=== PATIENT | female | born 1985 | race Caucasian/White ===

== ENCOUNTER 2016-09-29 00:43 | Inpatient (IN) | payer OTHER ==
[2016-09-29] MEDS ORDERED: PANTOPRAZOLE 40 MG/10 ML VIAL IVP STA (00:50)
--- NOTE | 2016-09-29 00:55 | ED ---
General Adult HPI - General Stated complaint: Drug Overdose Time Seen by Provider: 09/29/16 00:43 Source: RN notes reviewed - History of Present Illness Initial comments: This is a 31-year-old female who was unresponsive at the scene and that is why EMS was called according to EMS she was doing heroin with her boyfriend who was also unresponsive. EMS stated they gave 8 mg of Narcan and the patient became somewhat combative but still was not alert and not responding to them at all. Patient is started vomiting on the way in and there was some blood in the vomit appeared. No other history is available at this time. - Related Data Home Medications Medication Instructions Recorded Confirmed Unable To Assess [Unable to Assess] 09/29/16 09/29/16 Allergies Allergy/AdvReac Type Severity Reaction Status Date / Time Unable to Assess Allergy Verified 09/29/16 01:25 Review of Systems ROS Statement: Those systems with pertinent positive or pertinent negative responses have been documented in the HPI. ROS Other: All systems not noted in ROS Statement are negative. General Exam - General Exam Comments Initial Comments: GENERAL: Patient is well-developed and well-nourished. Patient is unresponsive ENT: Neck is soft and supple. No significant lymphadenopathy is noted. Oropharynx is clear. Moist mucous membranes. Neck has full range of motion without eliciting any pain. EYES: The sclera were anicteric and conjunctiva were pink and moist. Extraocular movements were intact and pupils were equal round and reactive to light. Eyelids were unremarkable. PULMONARY: Patient has Rales throughout bilaterally CARDIOVASCULAR: There is a regular rate and rhythm without any murmurs gallops or rubs. ABDOMEN: Abdomen was not distended SKIN: Skin is clear with no lesions or rashes and otherwise unremarkable. Ejection appear to be in the right antecubital fossa NEUROLOGIC: Patient is unresponsive and moves a little to painful stimuli but that said MUSCULOSKELETAL: Patient's extremities were moving range of motion could not be tested PSYCHIATRIC: Unable to assess Course Vital Signs 09/29/16 09/29/16 09/29/16 01:00 01:21 01:51 Temperature 97.7 F Pulse Rate 98 110 H 86 Respiratory 18 24 18 Rate Blood Pressure 153/72 149/65 98/54 O2 Sat by Pulse 97 99 100 Oximetry 09/29/16 02:36 Temperature Pulse Rate 91 Respiratory 18 Rate Blood Pressure 84/56 O2 Sat by Pulse 97 Oximetry Procedures - Intubation Time Out Performed: Yes Sedative: Versed Paralytic: Succinylcholine Laryngoscope: Peters Size: 3 ET Tube Size: 8 ET Tube Uncuffed: No Tube Secured Location: teeth Tube Placement Confirmation: visualized tube passing through cords, equal breath sounds bilaterally, no breath sounds over epigastrium, confirmation by capnometry Patient Tolerated Procedure: well Intubation Complications: none Medical Decision Making - Medical Decision Making Chest x-ray was normal. EKG showed good placement NG tube showed good placement. CT of the brain showed no acute normalities. I intubated the patient because she was unresponsive even to painful stimuli. Up with the patient a propofol drip so that she would not help fight the vent. Spoke with Dr. Torres admitted the patient. I spoke with Dr. Valencia and he will be managing the patient from a critical care standpoint. - Lab Data Result diagrams: 09/29/16 01:05 09/29/16 01:05 Lab Results 09/29/16 09/29/16 09/29/16 Range/Units 01:05 01:05 01:05 WBC (3.8-10.6) k/uL RBC (3.80-5.40) m/uL Hgb (11.4-16.0) gm/dL Hct (34.0-46.0) % MCV (80.0-100.0) fL MCH (25.0-35.0) pg MCHC (31.0-37.0) g/dL RDW (11.5-15.5) % Plt Count (150-450) k/uL Neutrophils % % Lymphocytes % % Monocytes % % Eosinophils % % Basophils % % Neutrophils # (1.3-7.7) k/uL Lymphocytes # (1.0-4.8) k/uL Monocytes # (0-1.0) k/uL Eosinophils # (0-0.7) k/uL Basophils # (0-0.2) k/uL PT (9.0-12.0) sec INR (<1.1) APTT (22.0-30.0) sec Sample Site ABG pH (7.35-7.45) ABG pCO2 (35-45) mmHg ABG pO2 (83-108) mmHg ABG HCO3 (21-25) mmol/L ABG Total CO2 (19-24) mmol/L ABG O2 Saturation (94-97) % ABG Base Excess mmol/L FiO2 % Sodium 141 (137-145) mmol/L Potassium 4.5 (3.5-5.1) mmol/L Chloride 110 H (98-107) mmol/L Carbon Dioxide 15 L (22-30) mmol/L Anion Gap 16 mmol/L BUN 20 H (7-17) mg/dL Creatinine 0.90 (0.52-1.04) mg/dL Est GFR (MDRD) Af Amer >60 (>60 ml/min/1.73 sqM) Est GFR (MDRD) Non-Af >60 (>60 ml/min/1.73 sqM) Glucose 213 H (74-99) mg/dL Calcium 8.5 (8.4-10.2) mg/dL Total Bilirubin 0.4 (0.2-1.3) mg/dL AST 311 H (14-36) U/L ALT 359 H (9-52) U/L Alkaline Phosphatase 56 (38-126) U/L Total Creatine Kinase 362 H (30-135) U/L CK-MB (CK-2) 2.1 (0.0-2.4) ng/mL CK-MB (CK-2) Rel Index 0.6 Troponin I <0.012 (0.000-0.034) ng/mL Total Protein 6.9 (6.3-8.2) g/dL Albumin 4.0 (3.5-5.0) g/dL Urine HCG, Qual (Not Detectd) Salicylates <1.0 mg/dL Urine Opiates Screen (NotDetected) Ur Oxycodone Screen (NotDetected) Urine Methadone Screen (NotDetected) Ur Propoxyphene Screen (NotDetected) Acetaminophen <10.0 ug/mL Ur Barbiturates Screen (NotDetected) U Tricyclic Antidepress (NotDetected) Ur Phencyclidine Scrn (NotDetected) Ur Amphetamines Screen (NotDetected) U Methamphetamines Scrn (NotDetected) U Benzodiazepines Scrn (NotDetected) Urine Cocaine Screen (NotDetected) U Marijuana (THC) Screen (NotDetected) Serum Alcohol <10 mg/dL Blood Type O Positive Blood Type Recheck No Antibody Screen NEGATIVE Spec Expiration Date 10/02/2016230409/29/16 09/29/16 09/29/16 Range/Units 01:05 01:05 01:19 WBC 14.1 H (3.8-10.6) k/uL RBC 4.29 (3.80-5.40) m/uL Hgb 12.8 (11.4-16.0) gm/dL Hct 39.5 (34.0-46.0) % MCV 92.0 (80.0-100.0) fL MCH 29.9 (25.0-35.0) pg MCHC 32.4 (31.0-37.0) g/dL RDW 12.3 (11.5-15.5) % Plt Count 271 (150-450) k/uL Neutrophils % 69 % Lymphocytes % 24 % Monocytes % 3 % Eosinophils % 2 % Basophils % 0 % Neutrophils # 9.7 H (1.3-7.7) k/uL Lymphocytes # 3.4 (1.0-4.8) k/uL Monocytes # 0.4 (0-1.0) k/uL Eosinophils # 0.3 (0-0.7) k/uL Basophils # 0.1 (0-0.2) k/uL PT 11.2 (9.0-12.0) sec INR 1.1 (<1.1) APTT 22.9 (22.0-30.0) sec Sample Site ABG pH (7.35-7.45) ABG pCO2 (35-45) mmHg ABG pO2 (83-108) mmHg ABG HCO3 (21-25) mmol/L ABG Total CO2 (19-24) mmol/L ABG O2 Saturation (94-97) % ABG Base Excess mmol/L FiO2 % Sodium (137-145) mmol/L Potassium (3.5-5.1) mmol/L Chloride (98-107) mmol/L Carbon Dioxide (22-30) mmol/L Anion Gap mmol/L BUN (7-17) mg/dL Creatinine (0.52-1.04) mg/dL Est GFR (MDRD) Af Amer (>60 ml/min/1.73 sqM) Est GFR (MDRD) Non-Af (>60 ml/min/1.73 sqM) Glucose (74-99) mg/dL Calcium (8.4-10.2) mg/dL Total Bilirubin (0.2-1.3) mg/dL AST (14-36) U/L ALT (9-52) U/L Alkaline Phosphatase (38-126) U/L Total Creatine Kinase (30-135) U/L CK-MB (CK-2) (0.0-2.4) ng/mL CK-MB (CK-2) Rel Index Troponin I (0.000-0.034) ng/mL Total Protein (6.3-8.2) g/dL Albumin (3.5-5.0) g/dL Urine HCG, Qual (Not Detectd) Salicylates mg/dL Urine Opiates Screen Not Detected (NotDetected) Ur Oxycodone Screen Not Detected (NotDetected) Urine Methadone Screen Not Detected (NotDetected) Ur Propoxyphene Screen Not Detected (NotDetected) Acetaminophen ug/mL Ur Barbiturates Screen Not Detected (NotDetected) U Tricyclic Antidepress Not Detected (NotDetected) Ur Phencyclidine Scrn Not Detected (NotDetected) Ur Amphetamines Screen Not Detected (NotDetected) U Methamphetamines Scrn Not Detected (NotDetected) U Benzodiazepines Scrn Not Detected (NotDetected) Urine Cocaine Screen Not Detected (NotDetected) U Marijuana (THC) Screen Not Detected (NotDetected) Serum Alcohol mg/dL Blood Type Blood Type Recheck Antibody Screen Spec Expiration Date 09/29/16 09/29/16 Range/Units 01:19 01:37 WBC (3.8-10.6) k/uL RBC (3.80-5.40) m/uL Hgb (11.4-16.0) gm/dL Hct (34.0-46.0) % MCV (80.0-100.0) fL MCH (25.0-35.0) pg MCHC (31.0-37.0) g/dL RDW (11.5-15.5) % Plt Count (150-450) k/uL Neutrophils % % Lymphocytes % % Monocytes % % Eosinophils % % Basophils % % Neutrophils # (1.3-7.7) k/uL Lymphocytes # (1.0-4.8) k/uL Monocytes # (0-1.0) k/uL Eosinophils # (0-0.7) k/uL Basophils # (0-0.2) k/uL PT (9.0-12.0) sec INR (<1.1) APTT (22.0-30.0) sec Sample Site LEFT BRACHIAL ABG pH 7.27 L (7.35-7.45) ABG pCO2 40 (35-45) mmHg ABG pO2 396 H (83-108) mmHg ABG HCO3 17 L (21-25) mmol/L ABG Total CO2 19 (19-24) mmol/L ABG O2 Saturation 100.0 H (94-97) % ABG Base Excess -8.3 mmol/L FiO2 100 % Sodium (137-145) mmol/L Potassium (3.5-5.1) mmol/L Chloride (98-107) mmol/L Carbon Dioxide (22-30) mmol/L Anion Gap mmol/L BUN (7-17) mg/dL Creatinine (0.52-1.04) mg/dL Est GFR (MDRD) Af Amer (>60 ml/min/1.73 sqM) Est GFR (MDRD) Non-Af (>60 ml/min/1.73 sqM) Glucose (74-99) mg/dL Calcium (8.4-10.2) mg/dL Total Bilirubin (0.2-1.3) mg/dL AST (14-36) U/L ALT (9-52) U/L Alkaline Phosphatase (38-126) U/L Total Creatine Kinase (30-135) U/L CK-MB (CK-2) (0.0-2.4) ng/mL CK-MB (CK-2) Rel Index Troponin I (0.000-0.034) ng/mL Total Protein (6.3-8.2) g/dL Albumin (3.5-5.0) g/dL Urine HCG, Qual Not Detected (Not Detectd) Salicylates mg/dL Urine Opiates Screen (NotDetected) Ur Oxycodone Screen (NotDetected) Urine Methadone Screen (NotDetected) Ur Propoxyphene Screen (NotDetected) Acetaminophen ug/mL Ur Barbiturates Screen (NotDetected) U Tricyclic Antidepress (NotDetected) Ur Phencyclidine Scrn (NotDetected) Ur Amphetamines Screen (NotDetected) U Methamphetamines Scrn (NotDetected) U Benzodiazepines Scrn (NotDetected) Urine Cocaine Screen (NotDetected) U Marijuana (THC) Screen (NotDetected) Serum Alcohol mg/dL Blood Type Blood Type Recheck Antibody Screen Spec Expiration Date Critical Care Time Critical Care Time: Yes Total Critical Care Time: 35 Disposition Clinical Impression: Heroin overdose Disposition: ADMITTED IP TO THIS [facility] Time of Disposition: 03:15
[2016-09-29] MEDS ORDERED: ONDANSETRON 4 MG/2 ML VIAL IVP STA (00:56)
--- NOTE | 2016-09-29 01:09 | XR ---
EXAMINATION TYPE: XR chest 1V portable DATE OF EXAM: 09/29/2016 12:59 AM COMPARISON: NONE HISTORY: Whole dose vomiting no prior TECHNIQUE: Single frontal view of the chest is obtained. FINDINGS: NG tube is noted in place with its tip in the distal esophagus and it has to be advanced at least by 15 cm into the stomach. There is no focal air space opacity, pleural effusion, or pneumothorax seen. The cardiac silhouette size is within normal limits. The osseous structures are intact. IMPRESSION: 1. No acute process. 2. NG tube is noted in place with its tip in the distal esophagus and it has to be advanced at least by 15 cm into the stomach. A phone report is given to Dr. Rice at the time of the dictation at 1:06 AM hours 09/29/2016.
[2016-09-29 01:23] LABS: Basophils # (A) 0.1 k/uL (0-0.2); Basophils % (A) 0 %; CHCM 32.8; Eosinophils # (A) 0.3 k/uL (0-0.7); Eosinophils % (A) 2 %; HCT 39.5 % (34.0-46.0); HDW 2.45; HGB 12.8 gm/dL (11.4-16.0); Luc % (Auto) 1; Lymphocytes # (A) 3.4 k/uL (1.0-4.8); Lymphocytes % (A) 24 %; MCH 29.9 pg (25.0-35.0); MCHC 32.4 g/dL (31.0-37.0); Mean Platelet Volume 8.9; Monocytes # (A) 0.4 k/uL (0-1.0); Monocytes % (A) 3 %; Neutrophils # (A) 9.7 k/uL (1.3-7.7); Neutrophils % (A) 69 %; RBC 4.29 m/uL (3.80-5.40); RDW 12.3 % (11.5-15.5); WBC 14.1 k/uL (3.8-10.6); WBC (Perox) 13.78
[2016-09-29] MEDS ORDERED: PROPOFOL 500 MG in EMPTY BAG 1 BAG IV ONE (01:30)
[2016-09-29] MEDS ORDERED: MIDAZOLAM (PF) 1 MG/ML 5 ML VIAL IV STA (01:31)
[2016-09-29] MEDS ORDERED: SUCCINYLCHOLINE CHLORIDE VIAL 200 MG/10 ML VIAL IV STA (01:32)
[2016-09-29 01:33] LABS: INR 1.1 (<1.1); Partial Thromboplastin Time 22.9 sec (22.0-30.0); Prothrombin Time 11.2 sec (9.0-12.0)
[2016-09-29 01:36] LABS: ALT 359 U/L (9-52); AST 311 U/L (14-36); Acetaminophen <10.0 ug/mL; Alcohol <10 mg/dL; Alkaline Phosphatase 56 U/L (38-126); Anion Gap 16 mmol/L; Blood Urea Nitrogen 20 mg/dL (7-17); Calcium 8.5 mg/dL (8.4-10.2); Carbon Dioxide 15 mmol/L (22-30); Chloride 110 mmol/L (98-107); Glucose 213 mg/dL (74-99); Non-African American GFR(MDRD) >60 (>60 ml/min/1.73 sqM); Potassium 4.5 mmol/L (3.5-5.1); Salicylate <1.0 mg/dL; Sodium 141 mmol/L (137-145); Total Bilirubin 0.4 mg/dL (0.2-1.3); Total Protein 6.9 g/dL (6.3-8.2)
[2016-09-29 01:45] LABS: Creatine Kinase 362 U/L (30-135)
--- NOTE | 2016-09-29 01:47 | XR ---
EXAMINATION TYPE: XR chest 1V portable DATE OF EXAM: 09/29/2016 1:14 AM COMPARISON: 09/29/2016, 12:56 AM hours HISTORY: Tube adjustment., Pain TECHNIQUE: Single frontal view of the chest is obtained. Portable supine study 09/29/2016, 1:11 AM hour s FINDINGS: There is ET tube noted in place with its tip approximately 2 cm above the hugo. NG tube is noted in place with its tip coursing towards the stomach. There is no focal air space opacity, pleural effusion, or pneumothorax seen. The cardiac silhouette size is within normal limits. The osseous structures are intact. IMPRESSION: 1. No acute process. 2. ET tube and NG tube are noted.
[2016-09-29 01:53] LABS: ABG Base Excess -8.3 mmol/L; ABG HCO3 17 mmol/L (21-25); ABG PCO2 40 mmHg (35-45); ABG PH 7.27 (7.35-7.45); ABG PO2 396 mmHg (83-108); ABG TCO2 19 mmol/L (19-24)
[2016-09-29 01:58] LABS: Creatine Kinase MB 2.1 ng/mL (0.0-2.4); Troponin I <0.012 ng/mL (0.000-0.034)
--- NOTE | 2016-09-29 02:31 | CT ---
EXAMINATION TYPE: CT brain wo con DATE OF EXAM: 09/29/2016 2:13 AM COMPARISON: NONE HISTORY: ETOH, unresponsive CT DLP: 1036 mGycm Automated exposure control for dose reduction was used. FINDINGS: There is no acute intracranial hemorrhage, mass effect, or midline shift identified. The ventricles and sulci are within normal limits in size. The globes are intact. Mild mucosal thickening is noted in the ethmoid sinuses. Air-fluid level is noted in the sphenoid sin us with acute sinusitis changes. IMPRESSION: No acute intracranial hemorrhage, mass effect, or midline shift is seen. Acute sphenoid sinusitis.
[2016-09-29] MEDS ORDERED: ZIPRASIDONE 20 MG VIAL IM STA (03:09)
[2016-09-29] MEDS ORDERED: LORazepam 2 MG/ML SYRINGE IM STA (03:09)
[2016-09-29] MEDS ORDERED: NALOXONE 0.4 MG/ML 1 ML VIAL IV PRN (03:15)
[2016-09-29 03:56] LABS: Glucose,Whole Blood 109 mg/dL (75-99)
[2016-09-29 05:55] LABS: Basophils # (A) 0.1 k/uL (0-0.2); Basophils % (A) 0 %; CHCM 32.7; Eosinophils % (A) 0 %; HCT 39.3 % (34.0-46.0); HDW 2.49; HGB 12.6 gm/dL (11.4-16.0); Luc # (Auto) 0.12; Luc % (Auto) 1; Lymphocytes # (A) 1.1 k/uL (1.0-4.8); Lymphocytes % (A) 5 %; MCH 29.6 pg (25.0-35.0); MCHC 32.1 g/dL (31.0-37.0); MCV 92.2 fL (80.0-100.0); Mean Platelet Volume 8.8; Monocytes # (A) 0.9 k/uL (0-1.0); Monocytes % (A) 4 %; Neutrophils # (A) 21.3 k/uL (1.3-7.7); Neutrophils % (A) 91 %; RBC 4.27 m/uL (3.80-5.40); RDW 12.3 % (11.5-15.5); WBC 23.4 k/uL (3.8-10.6); WBC (Perox) 25.16
[2016-09-29 05:57] LABS: ABG Base Excess -6.8 mmol/L; ABG HCO3 18 mmol/L (21-25); ABG PCO2 35 mmHg (35-45); ABG PH 7.33 (7.35-7.45); ABG PO2 245 mmHg (83-108); ABG TCO2 19 mmol/L (19-24)
[2016-09-29] MEDS: PROPOFOL 500 MG in EMPTY BAG 1 BAG IV SCH ×6 (06:09→22:05)
[2016-09-29 06:15] LABS: ALT 329 U/L (9-52); AST 383 U/L (14-36); Alkaline Phosphatase 54 U/L (38-126); Anion Gap 14 mmol/L; Blood Urea Nitrogen 24 mg/dL (7-17); Calcium 8.6 mg/dL (8.4-10.2); Carbon Dioxide 17 mmol/L (22-30); Chloride 114 mmol/L (98-107); Glucose 102 mg/dL (74-99); Magnesium 1.8 mg/dL (1.6-2.3); Non-African American GFR(MDRD) >60 (>60 ml/min/1.73 sqM); Phosphorous 3.7 mg/dL (2.5-4.5); Potassium 4.3 mmol/L (3.5-5.1); Sodium 145 mmol/L (137-145); Total Bilirubin 0.6 mg/dL (0.2-1.3)
[2016-09-29] MEDS ORDERED: Magnesium Replacement Protocol 1 EACH MISC MISCELLANE PRN (06:33)
[2016-09-29 07:42] LABS: Appearance,Urine Turbid (Clear); Bilirubin,Urine Negative (Negative); Glucose,Urine (UA) Negative (Negative); Ketones,Urine Negative (Negative); Leukocyte Esterase,Urine Negative (Negative); Mucus,Urine Few /hpf; Nitrite,Urine Negative (Negative); PH, Urine 5.5 (5.0-8.0); Particle Count 7897; Protein,Urine Trace (Negative); RBC,Urine 11 /hpf (0-5); Specific Gravity,Urine 1.018 (1.001-1.035); UA Billing (MACRO vs. MICRO) MICRO; Uric Acid Crystals,Urine Many /hpf; Urobilinogen,Urine <2.0 mg/dL (<2.0)
[2016-09-29] MEDS: MAGNESIUM SULFATE-D5W PMX 1 GM in DEXTROSE/WATER 1 100ML.BAG IVPB SCH ×2 (08:04→08:55)
[2016-09-29] MEDS: CHLORHEXIDINE GLUCONATE 15 ML CUP MUCOUS MEM SCH ×2 (08:54→20:23)
[2016-09-29] MEDS: PANTOPRAZOLE 40 MG/10 ML VIAL IV SCH (08:55)
[2016-09-29] MEDS: HEPARIN SODIUM,PORCINE 5,000 UNIT/ML 1 ML VIAL SQ SCH ×2 (08:55→18:16)
[2016-09-29] MEDS ORDERED: LORazepam 2 MG/ML SYRINGE ONE (10:42)
[2016-09-29] MEDS ORDERED: LORazepam 2 MG/ML SYRINGE IV STA (10:47)
[2016-09-29] MEDS: levETIRAcetam IV 1,000 MG in SALINE 1 100ML.BAG IVPB SCH ×2 (11:34→20:23)
[2016-09-29 15:29] LABS: Hepatitis B Surface Ag Index 0.09
--- NOTE | 2016-09-29 15:30 | P.CNPUL ---
History of Present Illness Consult date: 09/29/16 Chief complaint: Acute drug overdose History of present illness: 31-year-old female patient was brought into the emergency department after being found unresponsive suspecting a drug overdose. This patient is a long- term heroin abuser. At one point she was clean for a total of 9 months and she was using some subaxone. Apparently, she is back and doing drugs along with her . Yesterday, she was last seen doing drugs and her mother's in-laws house accompanied by her . The patient and her weren't and bedroom in the same house a different level when the [id number] went to check on them and they patient was found to be completely unresponsive. The himself was under the influence of the drug. The exact downtime is not known and it is estimated to be more than 30 minutes at least. The father-in- law on another brother from the same mother started CPR on the patient. EMS was called to the scene. The patient was given a total of 8 mg of Narcan with some response however they overall response was suboptimal. In the emergency department, the patient was not following any commands no she was responding to deep painful stimuli. At that point the patient was intubated and started on mechanical ventilation. At that she came into the intensive care unit the patient started doing some activity which was essentially twitching and this was perceived to be some agitation by the nursing staff and she was placed on Diprivan overnight. This morning, during my electrical equipment technician rounds, to this patient off Diprivan and immediately it was noted that the patient was having rapid jerks somewhat myoclonic and the twitching was on her face both upper extremities and lower extremities. This was typical of seizure, probably tonic- clonic with some myoclonic features and based on that she was given a total of 100 mg of Diprivan bolus and started back on Diprivan drip and started on IV Keppra 1 g twice a day. EEG was ordered on a stat basis. The patient was on a mechanical ventilator on assist control mode and the chest x-ray from this morning showed no acute abnormalities. CAT scan of the brain that was done in the emergency department was also negative. Note that her urine drug screen was negative and after an extensive search and interrogation of the family will follow the patient has used Flakka , which is a Japanese planned that had been melted and shots into her vein. This is an alpha -PVP drug that can cause agitation, delirium, paranoia, aggression, and has also been linked to , malignant hyperthermia, acute myocardial infarction. Clinically, the patient remains completely unresponsive. In fact she is on Diprivan for now and the jerking activity has subsided. She is hemodynamically stable. She is afebrile. Pupils are quite dilated at 6-7 mm in size. Reflexes are within normal in all 4 extremities laterally. Review of Systems ROS unobtainable: due to endotracheal tube, due to mental status Past Medical History Past Medical History: No Reported History Additional Past Medical History / Comment(s): Long history of IVDA involving heroin and the patient was using Subaxone and Vivitrol History of Any Multi-Drug Resistant Organisms: None Reported Past Surgical History: No Surgical Hx Reported Additional Past Surgical History / Comment(s): per . Past Anesthesia/Blood Transfusion Reactions: No Reported Reaction Past Psychological History: Anxiety Additional Psychological History / Comment(s): per . Smoking Status: Current every day smoker Past Alcohol Use History: None Reported Additional Past Alcohol Use History / Comment(s): per Past Drug Use History: Heroin Additional Drug Use History / Comment(s): found unresponsive by EMS personnel, reported by that they both took heroin prior to response by EMS. Medications and Allergies Home Medications Medication Instructions Recorded Confirmed Type Gabapentin 600 mg PO BID 09/29/16 09/29/16 History Allergies Allergy/AdvReac Type Severity Reaction Status Date / Time amoxicillin Allergy Unknown Verified 09/29/16 06:11 Physical Exam Vitals: Vital Signs Temp Pulse Pulse Resp BP BP Pulse Ox 09/29/16 11:00 120 H 20 100/54 98 09/29/16 10:30 115 H 48 H 99/51 92 L 09/29/16 10:00 87 17 103/49 100 09/29/16 09:30 88 16 117/60 98 09/29/16 09:00 118 H 18 102/52 99 09/29/16 08:30 81 16 118/53 99 09/29/16 08:00 97.6 F 100 19 101/51 93 L 09/29/16 07:30 80 17 101/52 99 09/29/16 07:00 80 16 102/51 100 09/29/16 06:40 94 19 98/54 98 02/02/17 06:00 79 16 102/53 100 09/29/16 05:00 77 17 105/53 100 09/29/16 04:00 97.5 F L 85 17 133/62 100 09/29/16 03:28 89 16 124/62 100 09/29/16 03:25 97.6 F 80 16 103/50 100 Intake and Output 09/29/16 09/29/16 09/29/16 06:59 14:59 22:59 Intake Total 150 429.95 Output Total 115 125 Balance 35 304.95 Intake: IV 150 100 normal saline 150 100 Intake, IV Titration 329.95 Amount Magnesium Sulfate-D5w Pmx 200 1 gm In Dextrose/Water 1 100ml.bag @ 100 mls/hr IVPB Q1H NETTIE Rx#: [id number] Propofol 500 mg In Empty 129.95 Bag 1 bag @ Titrate IV . Q0M NETTIE Rx#:[id number] Output: Urine 115 125 Other: Voiding Method Indwelling Catheter Weight 55.6 kg Patient is calm and comfortable sedated with Diprivan and intubated on mechanical ventilator.Head exam was generally normal. There was no scleral icterus or corneal arcus. Mucous membranes were moist.Neck was supple and without jugular venous distension, thyromegaly, or carotid bruits. Carotids were easily palpable bilaterally. There was no adenopathy. Orogastric and orotracheal tube are both in place.Cardiac exam revealed the PMI to be normally situated and sized. The rhythm was regular and no extrasystoles were noted during several minutes of auscultation. The first and second heart sounds were normal and physiologic splitting of the second heart sound was noted. There were no murmurs, rubs, clicks, or gallops.Lungs were clear to auscultation and percussion, and with normal diaphragmatic excursion. No wheezes or rales were noted. Abdominal exam revealed normal bowel sounds. The abdomen was soft, non- tender, and without masses, organomegaly, or appreciable enlargement of the abdominal aorta.Examination of the extremities revealed easily palpable radial, femoral and pedal pulses. There was no cyanosis, clubbing or edema. Neurologically, the patient is not having any clinical seizures although subclinical seizures can be present. Pupils around 6-7 mm in size. No nystagmus. No facial asymmetry. She does not respond to the painful stimuli. Reflexes are equal and symmetrical 4 extremities. No rigidity. No clonus. Results - Laboratory Findings CBC and BMP: 09/29/16 05:36 09/29/16 05:36 ABG ABG pH 7.33 (7.35-7.45) L 09/29/16 05:40 ABG pCO2 35 mmHg (35-45) 09/29/16 05:40 ABG pO2 245 mmHg (83-108) H 09/29/16 05:40 ABG O2 Saturation 100.0 % (94-97) H 09/29/16 05:40 PT/INR, D-dimer PT 11.2 sec (9.0-12.0) 09/29/16 01:05 INR 1.1 (<1.1) 09/29/16 01:05 Abnormal lab findings: Abnormal Labs 09/29/16 09/29/16 09/29/16 03:53 05:36 05:36 WBC 23.4 H Neutrophils # 21.3 H ABG pH ABG pO2 ABG HCO3 ABG O2 Saturation Chloride 114 H Carbon Dioxide 17 L BUN 24 H Glucose 102 H POC Glucose (mg/dL) 109 H AST 383 H ALT 329 H Urine Appearance Urine Protein Urine Blood Urine RBC Uric Acid Crystals Urine Mucus 09/29/16 09/29/16 05:40 05:40 WBC Neutrophils # ABG pH 7.33 L ABG pO2 245 H ABG HCO3 18 L ABG O2 Saturation 100.0 H Chloride Carbon Dioxide BUN Glucose POC Glucose (mg/dL) AST ALT Urine Appearance Turbid H Urine Protein Trace H Urine Blood Small H Urine RBC 11 H Uric Acid Crystals Many H Urine Mucus Few H - Diagnostic Findings Chest x-ray: image reviewed Assessment and Plan Plan: Assessment 1 acute drug intoxication. The patient has injected herself with Flekka, Japanese plant, and this is known to be a an alpha- PVP, a synthetic stimulant of the cathinon-class, a drug is associated with that his suicides and drug overdoses. 2 hypoxic encephalopathy secondary to drug overdose 3 generalized seizures, likely myoclonic 4 long history of IV drug use, involving heroin 5 leukocytosis 6 non-anion gap metabolic acidosis 7 negative urine drug screen Plan We'll contact poison control regarding further inflammation of his thyroid. We will obtain a no valve psychoactive drug screen to see if there is any other drugs involved in this patient's acute overdose. Keep the patient sedated with Diprivan and this would also have an antiepileptic effect. Continue the Keppra. Obtain neurologic consultation. Obtain an EEG. Continue vent support. DVT and GI prophylaxis. IV fluids. Unfortunately the prognosis poor based on the prolonged downtime and possibility of having significant severe hypoxic encephalopathy. Family was updated. We'll continue to follow.
--- NOTE | 2016-09-29 15:31 | HP ---
DATE OF ADMISSION: The chief complaint is unresponsive. HISTORY OF PRESENT ILLNESS: This is a 31-year-old woman with a past history of anxiety, history of nicotine dependence, polysubstance abuse, not being followed by a primary physician in the outpatient setting. Apparently, using along with her boyfriend according to the family and the patient was found to be unresponsive and family then performed CPR. EMS came and subsequently a pulse was noted but when the patient came to the ER, the patient was mechanically intubated. Patient also got 8 mg of Narcan with some increase in the response. The drug screen is negative at this time. There is no history of any fever, rigor or chills. No history of any headache. Patient apparently had a seizure movements which is a side affect of usage. Patient is currently unresponsive, mechanical ventilated, sedated and in the ICU, unable to give history and most of the history from my discussion with the staff nurse and as well as discussion with the grandmother who is got custody of most of her kids and also review of the chart. PAST MEDICAL HISTORY: History of anxiety. History of substance abuse. MEDICATIONS: Gabapentin 600 mg p.o. b.i.d. Allergies are AMOXICILLIN. Family history, social history and review of systems could not taken because of the patient's change in mental status. History of smoking and apparently IV heroin abuse also and usage. PHYSICAL EXAM: Patient is mechanically ventilated, pulse 115, blood pressure 99/51, respirations 48, temperature is 97.6, pulse ox 93% on 40% FiO2. The motorcycle mechanic settings are noted. HEENT: Conjunctivae normal. NECK: No jugular venous distension. CARDIOVASCULAR SYSTEM: S1, S2, muffled. RESPIRATORY: Breath sounds diminished at the bases, a few scattered rhonchi, no crackles. Abdomen is soft, nontender, no mass palpable. No hepatosplenomegaly. EXTREMITIES: Legs no edema, no swelling. NERVOUS SYSTEM: Higher functions as mentioned earlier. Moves all 4 limbs, no focal motor deficits. LYMPHATICS: No lymph node enlargement in the neck, groin or axillae. SKIN: No ulcers, rash or bleeding. Labs are at this time shows WBC 23.4. ABG is noted. AST, ALT noted. ASSESSMENT: 1. overdosage with cardiorespiratory and cardiorespiratory failure, acute hypoxic respiratory failure on mechanical ventilation. 2. Change in mental status, metabolic encephalopathy secondary to overdose. 3. Increased WBC. 4. Metabolic acidosis. 5. Increased random blood sugar. 6. Increased AST, ALT, possible hepatitis secondary to drug abuse. 7. Increased creatinine kinase. 8. History of anxiety. 9. FULL CODE. RECOMMENDATION AND DISCUSSION: In this 31-year-old woman who presented with multiple complex medical issues, will monitor the patient closely. Continue with the current medications. Continue with symptomatic treatment. Otherwise, at this time, continue the mechanical ventilation. Will monitor fluid closely. Dr. Junior has been consulted and I would also recommend neurology consultation, EEG, DVT prophylaxis. Prothrombin inhibitors. Guarded prognosis because of multiple complex medical issues. Further recommendations to follow. Discussed with the family at length and will also consult Electorate Officer and Case Management also once the patient improves. Otherwise, the prognosis guarded. See orders for further details. . Further recommendations to follow. MTDD
[2016-09-29 15:46] LABS: Hepatitis C Virus IgG Index 0.08
[2016-09-29 15:53] LABS: Hepatitis C Virus IgG Ab Negative (Negative)
--- NOTE | 2016-09-29 17:01 | P.CNNES ---
History of Present Illness Consult date: 09/29/16 Reason for Consult: Patient with heroin overdose and currently intubated on the ventilator. History of Present Illness: This patient is a 31-year-old right-handed white female who was found unresponsive at her home earlier today. EMS had arrived and found her collapsed and unresponsive. She was given Narcan at the scene and became slightly more arousable. She was brought into the emergency room where she required intubation. She was transferred to the intensive care unit for close monitoring. She did undergo a computed tomography scan of the brain which revealed no acute intracranial hemorrhage or mass effect. There was acute sphenoid sinusitis noted. Patient remains intubated on the ventilator and is currently on December the prevent drip. She is unresponsive at this time. There is no family at bedside to provide any further history for this patient. She was able to have a routine EEG performed today in the ICU. This EEG is reviewed and does reveal diffuse slowing consistent with a diffuse encephalopathy. There was no evidence of any active seizure focus on this EEG tracing. Patient does respond to painful stimuli even though she is on a Diprivan drip at this time. She does not open her eyes and does not follow any commands. Neurology is now been consulted for further evaluation and recommendations. Review of Systems ROS unobtainable: due to endotracheal tube Neurological: Reports change in mentation, Reports confusion Past Medical History Past Medical History: No Reported History Additional Past Medical History / Comment(s): Long history of IVDA involving heroin and the patient was using Subaxone and Vivitrol History of Any Multi-Drug Resistant Organisms: None Reported Past Surgical History: No Surgical Hx Reported Additional Past Surgical History / Comment(s): per . Past Anesthesia/Blood Transfusion Reactions: No Reported Reaction Past Psychological History: Anxiety Additional Psychological History / Comment(s): per . Smoking Status: Current every day smoker Past Alcohol Use History: None Reported Additional Past Alcohol Use History / Comment(s): per Past Drug Use History: Heroin Additional Drug Use History / Comment(s): found unresponsive by EMS personnel, reported by that they both took heroin prior to response by EMS. Medications and Allergies Home Medications Medication Instructions Recorded Confirmed Type Gabapentin 600 mg PO BID 09/29/16 09/29/16 History Allergies Allergy/AdvReac Type Severity Reaction Status Date / Time amoxicillin Allergy Unknown Verified 09/29/16 06:11 Physical Examination - Vital Signs Vital Signs: Vital Signs Temp Pulse Pulse Resp BP BP Pulse Ox 09/29/16 11:00 120 H 20 100/54 98 09/29/16 10:30 115 H 48 H 99/51 92 L 09/29/16 10:00 87 17 103/49 100 09/29/16 09:30 88 16 117/60 98 09/29/16 09:00 118 H 18 102/52 99 09/29/16 08:30 81 16 118/53 99 09/29/16 08:00 97.6 F 100 19 101/51 93 L 09/29/16 07:30 80 17 101/52 99 09/29/16 07:00 80 16 102/51 100 09/29/16 06:40 94 19 98/54 98 09/29/16 06:00 79 16 102/53 100 09/29/16 05:00 77 17 105/53 100 09/29/16 04:00 97.5 F L 85 17 133/62 100 09/29/16 03:28 89 16 124/62 100 09/29/16 03:25 97.6 F 80 16 103/50 100 Intake and Output 09/29/16 09/29/16 09/29/16 06:59 14:59 22:59 Intake Total 150 717.45 50 Output Total 115 260 45 Balance 35 457.45 5 Intake: IV 150 287.5 50 normal saline 150 287.5 50 Intake, IV Titration 429.95 Amount Magnesium Sulfate-D5w Pmx 200 1 gm In Dextrose/Water 1 100ml.bag @ 100 mls/hr IVPB Q1H [facility] Rx#: [id number] Propofol 500 mg In Empty 129.95 Bag 1 bag @ Titrate IV . Q0M [facility] Rx#:[id number] levETIRAcetam IV 1,000 mg 100 In Saline 1 100ml.bag @ 400 mls/hr IVPB Q12HR [facility] Rx#:[id number] Output: Urine 115 260 45 Other: Voiding Method Indwelling Catheter Weight 55.6 kg - Constitutional General appearance: average body habitus - EENT EENT: PERRL, mucous membranes moist - Respiratory Respiratory: lungs clear, normal breath sounds - Cardiovascular Cardiovascular: regular rate, normal S1, normal S2 Extremities: no peripheral edema bilaterally - Gastrointestinal Gastrointestinal: normoactive bowel sounds - Integumentary Integumentary: normal - Neurologic Cranial nerve examination: PERRL, VFF, face symmetric, intact gag reflex, intact corneal reflex Speech examination: intact Sensorimotor examination: intact Detailed motor examination: other (Patient withdraws to painful stimuli over all 4 extremities. Muscle tone is preserved in the extremities.) Detailed sensory examination: intact Reflex and gait examination: intact Reflexes: 1+: ankle, bicep, knee, tricep - Musculoskeletal Musculoskeletal: no pain Results - Laboratory Findings CBC and BMP: 09/29/16 05:36 09/29/16 05:36 Abnormal Lab Findings: Abnormal Labs 09/29/16 09/29/16 09/29/16 03:53 05:36 05:36 WBC 23.4 H Neutrophils # 21.3 H ABG pH ABG pO2 ABG HCO3 ABG O2 Saturation Chloride 114 H Carbon Dioxide 17 L BUN 24 H Glucose 102 H POC Glucose (mg/dL) 109 H AST 383 H ALT 329 H Urine Appearance Urine Protein Urine Blood Urine RBC Uric Acid Crystals Urine Mucus 09/29/16 09/29/16 05:40 05:40 WBC Neutrophils # ABG pH 7.33 L ABG pO2 245 H ABG HCO3 18 L ABG O2 Saturation 100.0 H Chloride Carbon Dioxide BUN Glucose POC Glucose (mg/dL) AST ALT Urine Appearance Turbid H Urine Protein Trace H Urine Blood Small H Urine RBC 11 H Uric Acid Crystals Many H Urine Mucus Few H Assessment and Plan (1) Acute metabolic encephalopathy Status: Acute Code(s): G93.41 - METABOLIC ENCEPHALOPATHY (2) Heroin overdose Status: Acute Code(s): T40.1X1A - POISONING BY HEROIN, ACCIDENTAL ( UNINTENTIONAL), INIT ENCNTR Plan: This patient is a 31-year-old female admitted with hair when overdose. She required intubation in the emergency room and was transferred to the intensive care unit. She remains on a Diprivan drip. She underwent a routine EEG the results of which are noted above. EEG is diffusely slow with no evidence of any epileptiform discharges. Patient with probable underlying acute metabolic encephalopathy following drug overdose. Patient does withdraw to painful stimuli. She is currently on a Diprivan drip and we will need to closely monitor her in the intensive care unit. Her overall prognosis at this time remains very guarded. We will continue close neurological follow-up with this patient in the intensive care unit. A computed tomography scan of the brain is reviewed and fails to reveal any acute changes. Her overall prognosis at this time remains very guarded. Time with Patient: Greater than 30
[2016-09-29] MEDS: GABAPENTIN 300 MG CAP PO SCH ×2 (18:16→20:23)
--- NOTE | 2016-09-29 22:28 | EEG ---
DATE OF SERVICE: 09/29/2016 INDICATION FOR EXAMINATION: This patient is a 31-year-old female admitted with heroin overdose. Patient currently intubated on the ventilator and is unresponsive. AGE: 31 years. EEG FINDINGS: A routine 21-channel awake digital EEG recording was accomplished utilizing the 10-20 international system with bipolar and referential montages. The background activity in the most alert resting state consists of a poorly developed, poorly sustained 3-4 Hz activity over the posterior head regions. This posterior rhythm attenuates minimally to eye opening. There is a small amount of low amplitude 18-20 Hz beta activity seen maximally over the anterior head regions. Muscle and movement artifact was observed on a few occasions during the tracing. Hyperventilation was not performed. Photic stimulation at flash frequencies of 2-30 Hz produced a minimal occipital driving response. No epileptiform discharges were seen. IMPRESSION: This EEG gives evidence of a severe widespread diffuse disturbance in cerebral function. The EEG failed to reveal any focal, lateralized or epileptiform abnormalities. If clinically indicated, a follow-up EEG is recommended. Clinical correlation is recommended.
[2016-09-30] MEDS: PROPOFOL 500 MG in EMPTY BAG 1 BAG IV SCH ×5 (00:02→11:03)
[2016-09-30] MEDS: HEPARIN SODIUM,PORCINE 5,000 UNIT/ML 1 ML VIAL SQ SCH ×3 (00:03→15:42)
[2016-09-30] MEDS ORDERED: SODIUM CHLORIDE 0.9% 1,000 ML IV ONE (04:28)
[2016-09-30] MEDS: ACETAMINOPHEN IV (For NPO) 1,000 MG in EMPTY BAG 1 BAG IVPB PRN ×2 (05:15→16:55)
[2016-09-30 05:17] LABS: ABG Base Excess -5.1 mmol/L; ABG HCO3 19 mmol/L (21-25); ABG PCO2 33 mmHg (35-45); ABG PH 7.38 (7.35-7.45); ABG PO2 141 mmHg (83-108); ABG TCO2 20 mmol/L (19-24)
[2016-09-30 05:23] LABS: Basophils % (A) 0 %; CH 29.9; CHCM 32.8; Eosinophils # (A) 0.2 k/uL (0-0.7); Eosinophils % (A) 1 %; HCT 34.9 % (34.0-46.0); HDW 2.46; HGB 11.6 gm/dL (11.4-16.0); Luc # (Auto) 0.16; Luc % (Auto) 1; Lymphocytes # (A) 1.5 k/uL (1.0-4.8); Lymphocytes % (A) 12 %; MCH 30.5 pg (25.0-35.0); MCHC 33.2 g/dL (31.0-37.0); MCV 91.8 fL (80.0-100.0); Mean Platelet Volume 8.6; Monocytes # (A) 0.5 k/uL (0-1.0); Monocytes % (A) 4 %; Neutrophils # (A) 9.8 k/uL (1.3-7.7); Neutrophils % (A) 81 %; RBC 3.81 m/uL (3.80-5.40); RDW 12.4 % (11.5-15.5); WBC 12.1 k/uL (3.8-10.6); WBC (Perox) 13.09
[2016-09-30 05:31] LABS: ALT 188 U/L (9-52); AST 131 U/L (14-36); Alkaline Phosphatase 50 U/L (38-126); Anion Gap 6 mmol/L; Blood Urea Nitrogen 15 mg/dL (7-17); Calcium 8.1 mg/dL (8.4-10.2); Carbon Dioxide 21 mmol/L (22-30); Chloride 111 mmol/L (98-107); Glucose 85 mg/dL (74-99); Magnesium 2.1 mg/dL (1.6-2.3); Non-African American GFR(MDRD) >60 (>60 ml/min/1.73 sqM); Phosphorous 2.4 mg/dL (2.5-4.5); Potassium 4.2 mmol/L (3.5-5.1); Sodium 138 mmol/L (137-145); Total Bilirubin 0.3 mg/dL (0.2-1.3); Total Protein 5.7 g/dL (6.3-8.2)
--- NOTE | 2016-09-30 07:43 | XR ---
EXAMINATION TYPE: XR chest 1V portable DATE OF EXAM: 09/30/2016 6:40 AM CLINICAL HISTORY: Difficulty breathing progress study. TECHNIQUE: 2 AP portable frontal semiupright views of the chest are obtained. COMPARISON: Chest x-ray from one day earlier FINDINGS: An endotracheal tube and nasogastric tube are stable in appearance. Lungs are grossly minna r without pleural effusion or pneumothorax seen bilaterally. The cardiac silhouette size appears with in normal limits. Osseous structures are intact. IMPRESSION: Overall stable findings, no acute pulmonary process is evident.
[2016-09-30] MEDS: levETIRAcetam IV 1,000 MG in SALINE 1 100ML.BAG IVPB SCH (09:47)
[2016-09-30] MEDS: GABAPENTIN 300 MG CAP PO SCH (09:47)
[2016-09-30] MEDS: CHLORHEXIDINE GLUCONATE 15 ML CUP MUCOUS MEM SCH (09:47)
[2016-09-30] MEDS: PANTOPRAZOLE 40 MG/10 ML VIAL IV SCH (09:47)
--- NOTE | 2016-09-30 10:55 | CT ---
EXAMINATION TYPE: CT brain wo con DATE OF EXAM: 09/30/2016 10:50 AM COMPARISON: 09/29/2016 HISTORY: follow up scan CT DLP: 1072.[address] of the brain was performed. The ventricles, basal cisterns and sulci overlying the cerebral convexities demonstrate a normal appe arance. There is no evidence for intracranial hemorrhage or sulcal effacement. No mass effects are seen. Osseous calvarium is intact. Chronic paranasal sinusitis. If symptoms persist consider MRI as clinically warranted. IMPRESSION: 1. No acute intracranial process is seen at this time.
--- NOTE | 2016-09-30 13:54 | P.PN ---
Subjective This patient is a 31 year old female seen in the ICU for heroin drug overdose and currently intubated on the ventilator. She remains obtunded on the ventilator. She had CT Scan brain done that was negative for any evidence of acute changes on admission. Patient had repeat computed tomography scan of the brain today which reveals no acute intracranial process. Patient remains obtunded and is still on the Diprivan drip. Her pupils are sluggishly reactive. She does withdraw to pain overall 4 extremities. She is not showing much change in her overall neurological status from yesterday. As noted repeat computed tomography scan of the brain fails to reveal any acute changes as compared to her initial scan. She has evidence of a severe encephalopathy secondary to drug overdose. We will continue close neurological follow-up with this patient in the ICU. She had an routine EEG done yesterday that was diffusely slow and consistent with a diffuse metabolic encephalopathy secondary to drug overdose. Her overall prognosis at this time remains very guarded. Objective - Vital Signs Vital signs: Vital Signs Temp 100.1 F H 09/30/16 05:00 Pulse 83 09/30/16 09:00 Resp 16 09/30/16 09:00 BP 113/58 09/30/16 09:00 Pulse Ox 100 09/30/16 09:00 Intake & Output 09/29/16 09/30/16 09/30/16 18:59 06:59 18:59 Intake Total 967.45 1767.342 688.13 Output Total 470 560 200 Balance 497.45 1207.342 488.13 Weight 56.5 kg Intake: IV 487.5 550 650 normal saline 487.5 550 650 Intake, IV Titration 479.95 1217.342 38.13 Amount Magnesium Sulfate-D5w Pmx 200 1 gm In Dextrose/Water 1 100ml.bag @ 100 mls/hr IVPB Q1H [facility] Rx#: [id number] Propofol 500 mg In Empty 179.95 117.342 38.13 Bag 1 bag @ Titrate IV . Q0M [facility] Rx#:[id number] Sodium Chloride 0.9% 1, 1000 000 ml @ 999 mls/hr IV . Q1H1M [facility] Rx#:[id number] levETIRAcetam IV 1,000 mg 100 100 In Saline 1 100ml.bag @ 400 mls/hr IVPB Q12HR [facility] Rx#:[id number] Output: Gastric Drainage 100 Urine 470 460 200 Other: Voiding Method Indwelling Catheter Indwelling Catheter - Exam Physical Examination: Patient seen in the ICU currently intubated on the ventilator. PHYSICAL EXAMINATION: Patient is resting comfortably in bed. VITAL SIGNS: Blood pressure is [109/52]. Heart rate is [88]. Respiration is [16] . Temperature is [98.7]. HEENT: Head is atraumatic, neck is supple, there were no carotid bruits. CHEST: Lungs are clear to auscultation and percussion. CARDIAC: S1, S2 normal rate and rhythm. There is no murmur. ABDOMEN: Soft and nontender. Bowel sounds are present. EXTREMITIES: There is no pedal edema. Peripheral pulses are present. Patient's neurological examination is unchanged from yesterday. She remains obtunded on the ventilator and is currently sedated. - Labs CBC & Chem 7: 09/30/16 04:21 09/30/16 04:21 Labs: Abnormal Lab Results - Last 24 Hours (Table) 09/30/16 09/30/16 09/30/16 Range/Units 04:21 04:21 05:00 WBC 12.1 H (3.8-10.6) k/uL Neutrophils # 9.8 H (1.3-7.7) k/uL ABG pCO2 33 L (35-45) mmHg ABG pO2 141 H (83-108) mmHg ABG HCO3 19 L (21-25) mmol/L ABG O2 Saturation 99.0 H (94-97) % Chloride 111 H (98-107) mmol/L Carbon Dioxide 21 L (22-30) mmol/L Calcium 8.1 L (8.4-10.2) mg/dL Phosphorus 2.4 L (2.5-4.5) mg/dL AST 131 H (14-36) U/L ALT 188 H (9-52) U/L Total Protein 5.7 L (6.3-8.2) g/dL Albumin 3.1 L (3.5-5.0) g/dL Microbiology - Last 24 Hours (Table) 09/29/16 03:50 Gram Stain - Preliminary Sputum Sputum Culture - Preliminary Assessment and Plan (1) Acute metabolic encephalopathy Status: Acute Code(s): G93.41 - METABOLIC ENCEPHALOPATHY (2) Heroin overdose Status: Acute Code(s): T40.1X1A - POISONING BY HEROIN, ACCIDENTAL ( UNINTENTIONAL), INIT ENCNTR Plan: This patient is a 31-year-old female admitted with hair when overdose. She required intubation in the emergency room and was transferred to the intensive care unit. She remains on a Diprivan drip. She underwent a routine EEG the results of which are noted above. EEG is diffusely slow with no evidence of any epileptiform discharges. Patient with probable underlying acute metabolic encephalopathy following drug overdose. Patient does withdraw to painful stimuli. She is currently on a Diprivan drip and we will need to closely monitor her in the intensive care unit. Her overall prognosis at this time remains very guarded. We will continue close neurological follow-up with this patient in the intensive care unit. A computed tomography scan of the brain is reviewed and fails to reveal any acute changes. The computed tomography scan was repeated today and continues to show no acute changes. She remains on a Diprivan drip. Apparently she was taken off of all sedation and showed no significant improvement in her neurological status. Patient has evidence of a severe encephalopathy following drug overdose. Her overall condition has shown no significant improvement in her neurological status in the ICU. Her overall prognosis at this time remains very guarded.
--- NOTE | 2016-09-30 16:55 | P.PN ---
Subjective 31-year-old female patient was brought into the emergency department after being found unresponsive suspecting a drug overdose. This patient is a long- term heroin abuser. At one point she was clean for a total of 9 months and she was using some subaxone. Apparently, she is back and doing drugs along with her . Yesterday, she was last seen doing drugs and her mother's in-laws house accompanied by her . The patient and her weren't and bedroom in the same house a different level when the [id number] went to check on them and they patient was found to be completely unresponsive. The himself was under the influence of the drug. The exact downtime is not known and it is estimated to be more than 30 minutes at least. The father-in- law on another brother from the same mother started CPR on the patient. EMS was called to the scene. The patient was given a total of 8 mg of Narcan with some response however they overall response was suboptimal. In the emergency department, the patient was not following any commands no she was responding to deep painful stimuli. At that point the patient was intubated and started on mechanical ventilation. At that she came into the intensive care unit the patient started doing some activity which was essentially twitching and this was perceived to be some agitation by the nursing staff and she was placed on Diprivan overnight. This morning, during my die attaching machine tender rounds, to this patient off Diprivan and immediately it was noted that the patient was having rapid jerks somewhat myoclonic and the twitching was on her face both upper extremities and lower extremities. This was typical of seizure, probably tonic- clonic with some myoclonic features and based on that she was given a total of 100 mg of Diprivan bolus and started back on Diprivan drip and started on IV Keppra 1 g twice a day. EEG was ordered on a stat basis. The patient was on a mechanical ventilator on assist control mode and the chest x-ray from this morning showed no acute abnormalities. CAT scan of the brain that was done in the emergency department was also negative. Note that her urine drug screen was negative and after an extensive search and interrogation of the family will follow the patient has used Flakka , which is a [place] planned that had been melted and shots into her vein. This is an alpha -PVP drug that can cause agitation, delirium, paranoia, aggression, and has also been linked to , malignant hyperthermia, acute myocardial infarction. Clinically, the patient remains completely unresponsive. In fact she is on Diprivan for now and the jerking activity has subsided. She is hemodynamically stable. She is afebrile. Pupils are quite dilated at 6-7 mm in size. Reflexes are within normal in all 4 extremities laterally. On 09/30/2016 the patient is being seen in follow-up. As mentioned yesterday, the patient is a drug overdose case and the patient has signs of severe hypoxic encephalopathy. She was having seizure activity yesterday and based on that I put her on Diprivan and start on Keppra. Follow-up EEG was done and it showed evidence of severe widespread diffuse disturbance in the cerebral function. There was no evidence of any focal lateralizing or epileptiform activities. The patient as such was kept on the Diprivan and Keppra overnight and this morning she was taken off the Diprivan and she was given a holiday. The patient remained completely unresponsive. No junk activity was noted. The patient is unresponsive to any deep painful stimuli. She remains deeply comatose. She is still on IV Keppra for now 1 g every 12 hours. Neurology is on the case and strongly suspecting severe hypoxic/anoxic encephalopathy. Meanwhile, we are considering the rest of the supportive care. The patient remains on a mechanical ventilator. Chest x-ray today is clear. Blood gases were noted. The patient is oxygenating well. The patient will be started on tube feeds today. The patient did have a spike of temperature and she'll be cultured including sputum and blood and urine and she was started on empiric antibiotic coverage with IV Zosyn. Objective - Vital Signs Vital signs: Vital Signs Temp 101.1 F H 09/30/16 16:00 Pulse 94 09/30/16 16:00 Resp 15 09/30/16 16:00 BP 121/52 09/30/16 16:00 Pulse Ox 100 09/30/16 16:00 Intake & Output 09/29/16 09/30/16 09/30/16 18:59 06:59 18:59 Intake Total 967.45 1767.342 616.248 Output Total 470 560 850 Balance 497.45 1207.342 -233.752 Weight 56.5 kg 55.8 kg Intake: IV 487.5 550 500 normal saline 487.5 550 500 Intake, IV Titration 479.95 1217.342 96.248 Amount Magnesium Sulfate-D5w Pmx 200 1 gm In Dextrose/Water 1 100ml.bag @ 100 mls/hr IVPB Q1H [facility] Rx#: [id number] Propofol 500 mg In Empty 179.95 117.342 96.248 Bag 1 bag @ Titrate IV . Q0M [facility] Rx#:[id number] Sodium Chloride 0.9% 1, 1000 000 ml @ 999 mls/hr IV . Q1H1M [facility] Rx#:[id number] levETIRAcetam IV 1,000 mg 100 100 In Saline 1 100ml.bag @ 400 mls/hr IVPB Q12HR [facility] Rx#:[id number] Tube Feeding 20 Output: Gastric Drainage 100 Urine 470 460 850 Other: Voiding Method Indwelling Catheter Indwelling Catheter Indwelling Catheter - Exam Patient is calm and comfortable and intubated on mechanical ventilator.Head exam was generally normal. There was no scleral icterus or corneal arcus. Mucous membranes were moist. Neck was supple and without jugular venous distension, thyromegaly, or carotid bruits. Carotids were easily palpable bilaterally. There was no adenopathy. Orogastric and orotracheal tube are both in place.Cardiac exam revealed the PMI to be normally situated and sized. The rhythm was regular and no extrasystoles were noted during several minutes of auscultation. The first and second heart sounds were normal and physiologic splitting of the second heart sound was noted. There were no murmurs, rubs, clicks, or gallops.Lungs were clear to auscultation and percussion, and with normal diaphragmatic excursion. No wheezes or rales were noted. Abdominal exam revealed normal bowel sounds. The abdomen was soft, non-tender, and without masses, organomegaly, or appreciable enlargement of the abdominal aorta.Examination of the extremities revealed easily palpable radial, femoral and pedal pulses. There was no cyanosis, clubbing or edema. Neurologically, the patient was taken off Diprivan. She is deeply comatose. Not responding to any deep painful stimuli.The pupils are reactive and they're sluggish there around 3 mm in size and there is minimal cough reflex. There is no rigidity no Babinski no clonus. The patient is riding the mechanical ventilator breathing at 16 times per minute. No seizure activity has been noted. - Labs CBC & Chem 7: 09/30/16 04:21 09/30/16 04:21 Labs: Abnormal Lab Results - Last 24 Hours (Table) 09/30/16 09/30/16 09/30/16 Range/Units 04:21 04:21 05:00 WBC 12.1 H (3.8-10.6) k/uL Neutrophils # 9.8 H (1.3-7.7) k/uL ABG pCO2 33 L (35-45) mmHg ABG pO2 141 H (83-108) mmHg ABG HCO3 19 L (21-25) mmol/L ABG O2 Saturation 99.0 H (94-97) % Chloride 111 H (98-107) mmol/L Carbon Dioxide 21 L (22-30) mmol/L Calcium 8.1 L (8.4-10.2) mg/dL Phosphorus 2.4 L (2.5-4.5) mg/dL AST 131 H (14-36) U/L ALT 188 H (9-52) U/L Total Protein 5.7 L (6.3-8.2) g/dL Albumin 3.1 L (3.5-5.0) g/dL Microbiology - Last 24 Hours (Table) 09/29/16 03:50 Gram Stain - Preliminary Sputum Sputum Culture - Preliminary Marian albicans Assessment and Plan Plan: Assessment 1 acute drug intoxication. The patient has injected herself with Flekka, [place] plant, and this is known to be a an alpha- PVP, a synthetic stimulant of the cathinon-class, a drug is associated with that his suicides and drug overdoses. 2 hypoxic encephalopathy secondary to drug overdose. The patient is currently Off sedation and she is deeply comatose. Neurology is on the case and will do agree. Neurologic examinations. EEG showed diffuse slowing without evidence of any seizure activity. The patient remains on Keppra. Repeat CAT scan of the brain showed no acute abnormalities. 3 generalized seizures, likely myoclonic, The EEG performed yesterday while the patient on Diprivan showed no seizure activity and there was diffuse slowing. A follow-up EEG needs to be done later stage. Meanwhile the patient was taken off Diprivan and she is currently on IV Keppra. 4 long history of IV drug use, involving heroin 5 leukocytosis 6 non-anion gap metabolic acidosis 7 negative urine drug screen 8 new-onset fever, rule out infection, rule out neurogenic fever. Plan I will continue monitoring the patient's neurological functions hour to hour basis. Keep the patient off Diprivan for now. Watch for any seizure activity. Repeat EEG. Neurology to follow-up on the case. Unfortunately prognosis poor baseline above-mentioned neurological deficits are seen on this patient. Repeat CAT scan of the brain is negative. Patient is febrile and the patient is having a sepsis workup and we will cover the patient empirically with IV Rocephin. Drop the temperature by Tylenol. We will monitor temperature very closely and not allow any further temperature elevation. 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 The patient will be started on enteral feeding for nutritional support. Prognosis overall is poor. We'll continue to follow. This examination was done and 40 minutes. Time with Patient: Greater than 30
--- NOTE | 2016-09-30 18:54 | PN ---
DATE OF SERVICE: 09/30/2016 This 31-year-old woman was admitted with unresponsiveness and acute cardiorespiratory failure after IV Flakka usage. She is being closely monitored at this time. Patient apparently had seizures. Patient is on Keppra at this time. Neurology is following the patient closely. Her vitals are stable, but patient has tonic movements at this time. The most recent CT scan did not show any acute abnormality at this time. Past medical history reviewed. Review of systems could not be taken. The patient is mechanically ventilated and sedated. Current medications are reviewed and include: 1. Tylenol 1000 mg q.6 p.r.n. 2. Peridex. 3. Neurontin 600 mg b.i.d. 4. Keppra 1 gram b.i.d. 5. Narcan. 6. Protonix. 7. Propofol. PHYSICAL EXAMINATION: Patient is mechanically ventilated and sedated. Pulse is 99, blood pressure 113/56, respiration 23, temperature 98.6, pulse ox 100% on 40% FiO2 mechanical ventilation. The vent settings are noted. HEENT: Conjunctivae normal. Oral mucosa moist. NECK: No jugular venous distention. No carotid bruit. No lymph node enlargement. CARDIOVASCULAR SYSTEM: S1, S2 muffled. No S3. No S4. RESPIRATORY SYSTEM: Breath sounds diminished at the bases. A few scattered rhonchi and crackles. Expiratory wheezing also present. ABDOMEN: Soft, nontender. No mass palpable. LEGS: No edema. No swelling. NERVOUS SYSTEM: Higher functions as mentioned earlier. Moves all 4 limbs. No focal motor or sensory deficit. LYMPHATICS: No lymph node palpable in neck, axillae or groin. SKIN: No ulcer, rash, bleeding. LABS: WBC 12.1. Otherwise, AST and ALT are noted. The hepatitis panel is negative. ASSESSMENT: 1. Overdosage with Flakka with cardiorespiratory arrest and failure with acute hypoxic respiratory failure, on mechanical ventilation. 2. Change in mental status, metabolic encephalopathy, secondary to overdose. 3. Increased white count. 4. Metabolic acidosis. 5. Seizure disorder, underlying. 6. Increased random blood sugar. 7. Increased AST, ALT, possibly hepatitis secondary to drug abuse. 8. Increased creatine kinase. 9. History of anxiety. 10. FULL CODE. RECOMMENDATIONS AND DISCUSSION: In this 31-year-old woman who presented with multiple complex medical issues, we will monitor the patient closely, continue the current medication, continue with symptomatic treatment. Otherwise, continue with mechanical ventilation. Patient is off sedation at this time. Follow closely with Neurology as well as Dr. Junior. Guarded prognosis because of multiple complex medical issues. Further recommendations to follow. I had a detailed discussion with the family yesterday.
[2016-10-01] MEDS: CHLORHEXIDINE GLUCONATE 15 ML CUP MUCOUS MEM SCH ×3 (00:57→21:14)
[2016-10-01] MEDS: GABAPENTIN 300 MG CAP PO SCH ×3 (00:57→21:14)
[2016-10-01] MEDS: HEPARIN SODIUM,PORCINE 5,000 UNIT/ML 1 ML VIAL SQ SCH ×3 (00:58→17:00)
[2016-10-01] MEDS: levETIRAcetam IV 1,000 MG in SALINE 1 100ML.BAG IVPB SCH ×3 (00:58→21:14)
[2016-10-01 01:03] LABS: Glucose,Whole Blood 134 mg/dL (75-99)
[2016-10-01] MEDS: INSULIN LISPRO (humaLOG) 300 UNIT/3 ML VIAL SQ SCH ×4 (01:04→18:21)
[2016-10-01 05:09] LABS: ABG Base Excess -6.4 mmol/L; ABG HCO3 18 mmol/L (21-25); ABG PCO2 31 mmHg (35-45); ABG PH 7.38 (7.35-7.45); ABG PO2 154 mmHg (83-108); ABG TCO2 19 mmol/L (19-24)
[2016-10-01 05:36] LABS: Basophils % (A) 0 %; CHCM 32.1; Eosinophils % (A) 0 %; HCT 35.4 % (34.0-46.0); HDW 2.49; HGB 11.3 gm/dL (11.4-16.0); Luc # (Auto) 0.09; Luc % (Auto) 1; Lymphocytes # (A) 0.5 k/uL (1.0-4.8); Lymphocytes % (A) 3 %; MCH 29.9 pg (25.0-35.0); MCHC 31.8 g/dL (31.0-37.0); MCV 93.9 fL (80.0-100.0); Mean Platelet Volume 8.8; Monocytes # (A) 0.6 k/uL (0-1.0); Monocytes % (A) 4 %; Neutrophils # (A) 14.3 k/uL (1.3-7.7); Neutrophils % (A) 92 %; RBC 3.77 m/uL (3.80-5.40); RDW 12.2 % (11.5-15.5); WBC 15.6 k/uL (3.8-10.6); WBC (Perox) 16.82
[2016-10-01 05:48] LABS: Anion Gap 9 mmol/L; Calcium 8.3 mg/dL (8.4-10.2); Carbon Dioxide 20 mmol/L (22-30); Chloride 111 mmol/L (98-107); Glucose 143 mg/dL (74-99); Non-African American GFR(MDRD) >60 (>60 ml/min/1.73 sqM); Sodium 140 mmol/L (137-145); Total Bilirubin 0.9 mg/dL (0.2-1.3); Total Protein 6.1 g/dL (6.3-8.2)
[2016-10-01 05:49] LABS: Blood Urea Nitrogen 13 mg/dL (7-17); Phosphorous 1.8 mg/dL (2.5-4.5); Potassium 4.2 mmol/L (3.5-5.1)
[2016-10-01 05:50] LABS: ALT 123 U/L (9-52); AST 80 U/L (14-36); Alkaline Phosphatase 54 U/L (38-126); Magnesium 1.8 mg/dL (1.6-2.3)
[2016-10-01 07:15] LABS: ALT 119 U/L (9-52); AST 70 U/L (14-36); Alkaline Phosphatase 57 U/L (38-126); Anion Gap 7 mmol/L; Blood Urea Nitrogen 14 mg/dL (7-17); Calcium 8.5 mg/dL (8.4-10.2); Carbon Dioxide 24 mmol/L (22-30); Chloride 110 mmol/L (98-107); Glucose 148 mg/dL (74-99); Non-African American GFR(MDRD) >60 (>60 ml/min/1.73 sqM); Potassium 3.9 mmol/L (3.5-5.1); Sodium 141 mmol/L (137-145); Total Bilirubin 0.6 mg/dL (0.2-1.3); Total Protein 5.8 g/dL (6.3-8.2)
[2016-10-01 07:17] LABS: Glucose,Whole Blood 143 mg/dL (75-99)
[2016-10-01] MEDS ORDERED: Potassium Replacement Protocol 1 EACH MISC MISCELLANE PRN (07:20)
[2016-10-01] MEDS ORDERED: Phosphorus Replacement Protoco 1 EACH MISC MISCELLANE PRN (07:20)
--- NOTE | 2016-10-01 07:47 | XR ---
EXAMINATION TYPE: XR chest 1V portable DATE OF EXAM: 10/01/2016 6:59 AM COMPARISON: September 30, 2016 HISTORY: SOB, Follow Up FINDINGS: Indwelling tubes and catheters are unchanged. Left lower lobe infiltrate or atelectasis noted. Stable appearance of the cardio-mediastinal structures at this time. Pleural effusion unchanged. IMPRESSION: 1. Left lower lobe infiltrate or atelectasis noted.
[2016-10-01] MEDS ORDERED: POTASSIUM CHLORIDE ORAL LIQUID 40 MEQ/30 ML CUP NG-TUBE ONE (08:00)
[2016-10-01] MEDS: PANTOPRAZOLE 40 MG/10 ML VIAL IV SCH (09:36)
--- NOTE | 2016-10-01 10:44 | P.PN ---
Subjective 31-year-old female patient was brought into the emergency department after being found unresponsive suspecting a drug overdose. This patient is a long- term heroin abuser. At one point she was clean for a total of 9 months and she was using some subaxone. Apparently, she is back and doing drugs along with her . Yesterday, she was last seen doing drugs and her mother's in-laws house accompanied by her . The patient and her weren't and bedroom in the same house a different level when the [id number] went to check on them and they patient was found to be completely unresponsive. The himself was under the influence of the drug. The exact downtime is not known and it is estimated to be more than 30 minutes at least. The father-in- law on another brother from the same mother started CPR on the patient. EMS was called to the scene. The patient was given a total of 8 mg of Narcan with some response however they overall response was suboptimal. In the emergency department, the patient was not following any commands no she was responding to deep painful stimuli. At that point the patient was intubated and started on mechanical ventilation. At that she came into the intensive care unit the patient started doing some activity which was essentially twitching and this was perceived to be some agitation by the nursing staff and she was placed on Diprivan overnight. This morning, during my trench digger rounds, to this patient off Diprivan and immediately it was noted that the patient was having rapid jerks somewhat myoclonic and the twitching was on her face both upper extremities and lower extremities. This was typical of seizure, probably tonic- clonic with some myoclonic features and based on that she was given a total of 100 mg of Diprivan bolus and started back on Diprivan drip and started on IV Keppra 1 g twice a day. EEG was ordered on a stat basis. The patient was on a mechanical ventilator on assist control mode and the chest x-ray from this morning showed no acute abnormalities. CAT scan of the brain that was done in the emergency department was also negative. Note that her urine drug screen was negative and after an extensive search and interrogation of the family will follow the patient has used Flakka , which is a [place] planned that had been melted and shots into her vein. This is an alpha -PVP drug that can cause agitation, delirium, paranoia, aggression, and has also been linked to , malignant hyperthermia, acute myocardial infarction. Clinically, the patient remains completely unresponsive. In fact she is on Diprivan for now and the jerking activity has subsided. She is hemodynamically stable. She is afebrile. Pupils are quite dilated at 6-7 mm in size. Reflexes are within normal in all 4 extremities laterally. On 09/30/2016 the patient is being seen in follow-up. As mentioned yesterday, the patient is a drug overdose case and the patient has signs of severe hypoxic encephalopathy. She was having seizure activity yesterday and based on that I put her on Diprivan and start on Keppra. Follow-up EEG was done and it showed evidence of severe widespread diffuse disturbance in the cerebral function. There was no evidence of any focal lateralizing or epileptiform activities. The patient as such was kept on the Diprivan and Keppra overnight and this morning she was taken off the Diprivan and she was given a holiday. The patient remained completely unresponsive. No junk activity was noted. The patient is unresponsive to any deep painful stimuli. She remains deeply comatose. She is still on IV Keppra for now 1 g every 12 hours. Neurology is on the case and strongly suspecting severe hypoxic/anoxic encephalopathy. Meanwhile, we are considering the rest of the supportive care. The patient remains on a mechanical ventilator. Chest x-ray today is clear. Blood gases were noted. The patient is oxygenating well. The patient will be started on tube feeds today. The patient did have a spike of temperature and she'll be cultured including sputum and blood and urine and she was started on empiric antibiotic coverage with IV Zosyn. On 10/01/2016 the patient is being seen in follow-up. As mentioned, yesterday morning the patient was taken off sedation. The prevent was discontinued. She did not have any seizure activity noted. On the. Neurologic examination the patient was noted to be still unresponsive. This morning, she had some minimal response to deep painful stimuli. She is occasionally breathing above the mechanical ventilator. She has a good cough reflex. Pupils are round 4 mm in size and there reactive to light. There is no nystagmus. No Babinski. No clonus. DTRs are diminished and +1 in upper and lower extremities. No abnormal jerky body movements. The patient remains on Keppra. Fever has been treated and the patient is currently afebrile. IV Rocephin was started as an empiric antibiotic coverage. The patient is on a mechanical ventilator and the vent setting currently is an assist-control of 16, tidal volume 400, FiO2 of 30 % and a PEEP of 5. Chest x-rayDone today is clear and the patient is currently on IV Rocephin as a empiric antibiotic coverage. Objective - Vital Signs Vital signs: Vital Signs Temp 100.3 F H 10/01/16 04:00 Pulse 104 H 10/01/16 10:00 Resp 18 10/01/16 10:00 BP 113/53 10/01/16 10:00 Pulse Ox 97 10/01/16 10:00 Intake & Output 09/30/16 10/01/16 10/01/16 18:59 06:59 18:59 Intake Total 454.218 3903 290 Output Total 1000 460 195 Balance -263.752 730 95 Weight 55.8 kg 54 kg Intake: IV 600 600 200 normal saline 600 600 200 Intake, IV Titration 96.248 100 Amount Propofol 500 mg In Empty 96.248 Bag 1 bag @ Titrate IV . Q0M [facility] Rx#:[id number] levETIRAcetam IV 1,000 mg 100 In Saline 1 100ml.bag @ 400 mls/hr IVPB Q12HR [facility] Rx#:[id number] Tube Feeding 40 400 90 Other 90 Output: Urine 1000 460 195 Other: Voiding Method Indwelling Catheter Indwelling Catheter Indwelling Catheter # Bowel Movements 0 0 - Exam Patient is calm and comfortable and intubated on mechanical ventilator.Head exam was generally normal. There was no scleral icterus or corneal arcus. Mucous membranes were moist. Neck was supple and without jugular venous distension, thyromegaly, or carotid bruits. Carotids were easily palpable bilaterally. There was no adenopathy. Orogastric and orotracheal tube are both in place.Cardiac exam revealed the PMI to be normally situated and sized. The rhythm was regular and no extrasystoles were noted during several minutes of auscultation. The first and second heart sounds were normal and physiologic splitting of the second heart sound was noted. There were no murmurs, rubs, clicks, or gallops.Lungs were clear to auscultation and percussion, and with normal diaphragmatic excursion. No wheezes or rales were noted. Abdominal exam revealed normal bowel sounds. The abdomen was soft, non-tender, and without masses, organomegaly, or appreciable enlargement of the abdominal aorta.Examination of the extremities revealed easily palpable radial, femoral and pedal pulses. There was no cyanosis, clubbing or edema. Neurologically, the patient has minimal sluggish response to deep painful stimuli that was applied to her chest and lower extremities bilaterally. Reflexes are +1, no rigidity, no Babinski, no clonus, no facial asymmetry, she has a good cough and gag reflex and a gag reflex, pupils around 4 mm in size and they are reactive to light, no nystagmus, she is at times breathing above the mechanical ventilator. As such, the patient remains deeply comatose. - Labs CBC & Chem 7: 10/01/16 05:15 10/01/16 06:41 Labs: Abnormal Lab Results - Last 24 Hours (Table) 10/01/16 10/01/16 10/01/16 Range/Units 01:01 05:03 05:15 WBC 15.6 H (3.8-10.6) k/uL RBC 3.77 L (3.80-5.40) m/uL Hgb 11.3 L (11.4-16.0) gm/dL Plt Count 146 L (150-450) k/uL Neutrophils # 14.3 H (1.3-7.7) k/uL Lymphocytes # 0.5 L (1.0-4.8) k/uL ABG pCO2 31 L (35-45) mmHg ABG pO2 154 H (83-108) mmHg ABG HCO3 18 L (21-25) mmol/L ABG O2 Saturation 99.0 H (94-97) % Chloride (98-107) mmol/L Carbon Dioxide (22-30) mmol/L Creatinine (0.52-1.04) mg/dL Glucose (74-99) mg/dL POC Glucose (mg/dL) 134 H (75-99) mg/dL Calcium (8.4-10.2) mg/dL Phosphorus (2.5-4.5) mg/dL AST (14-36) U/L ALT (9-52) U/L Total Protein (6.3-8.2) g/dL Albumin (3.5-5.0) g/dL 10/01/16 10/01/16 10/01/16 Range/Units 05:15 06:41 07:14 WBC (3.8-10.6) k/uL RBC (3.80-5.40) m/uL Hgb (11.4-16.0) gm/dL Plt Count (150-450) k/uL Neutrophils # (1.3-7.7) k/uL Lymphocytes # (1.0-4.8) k/uL ABG pCO2 (35-45) mmHg ABG pO2 (83-108) mmHg ABG HCO3 (21-25) mmol/L ABG O2 Saturation (94-97) % Chloride 111 H 110 H (98-107) mmol/L Carbon Dioxide 20 L (22-30) mmol/L Creatinine 0.48 L 0.49 L (0.52-1.04) mg/dL Glucose 143 H 148 H (74-99) mg/dL POC Glucose (mg/dL) 143 H (75-99) mg/dL Calcium 8.3 L (8.4-10.2) mg/dL Phosphorus 1.8 L (2.5-4.5) mg/dL AST 80 H 70 H (14-36) U/L ALT 123 H 119 H (9-52) U/L Total Protein 6.1 L 5.8 L (6.3-8.2) g/dL Albumin 3.1 L 3.0 L (3.5-5.0) g/dL Microbiology - Last 24 Hours (Table) 09/29/16 03:50 Gram Stain - Final Sputum Sputum Culture - Final Marian albicans 09/30/16 04:51 Blood Culture - Preliminary Blood No Growth after 24 hours 09/30/16 04:36 Blood Culture - Preliminary Blood No Growth after 24 hours Assessment and Plan Plan: Assessment 1 acute drug intoxication. The patient has injected herself with Flekka, Czech plant, and this is known to be a an alpha- PVP, a synthetic stimulant of the cathinon-class, a drug is associated with that his suicides and drug overdoses. 2 hypoxic encephalopathy secondary to drug overdose. The patient is currently Off sedation and she is deeply comatose. Neurology is on the case and will do agree. Neurologic examinations. EEG showed diffuse slowing without evidence of any seizure activity. The patient remains on Keppra. Repeat CAT scan of the brain showed no acute abnormalities. On 10/01/2016, the patient remains deeply comatose. No obvious seizure activity noted. Her latest EEG has shown diffuse slowing and the patient remains on Keppra. The patient has signs of severe hypoxic/anoxic encephalopathy following her acute drug intoxication and cardiopulmonary arrest. A follow-up EEG will be done today. We'll monitor neurological outcome. Intensive care unit. The patient me will be kept intubated and mechanical ventilator. The rest of the supportive care will be also continued. 3 generalized seizures, currently inactive The EEG performed yesterday while the patient on Diprivan showed no seizure activity and there was diffuse slowing. A follow-up EEG needs to be done later stage. Meanwhile the patient was taken off Diprivan and she is currently on IV Keppra. 4 long history of IV drug use, involving heroin 5 leukocytosis 6 non-anion gap metabolic acidosis 7 negative urine drug screen 8 new-onset fever, rule out infection, rule out neurogenic fever. Plan Continue vent support. Repeat EEG. Neurology follow-up. Fever monitoring. Empiric IV Rocephin. Prognosis obviously is poor as the patient is deeply comatose secondary to hypoxic encephalopathy. Will need neurology to prognosticate this patient and the EEG may be useful in terms of setting her prognosis. No major improvement in her neurologic outcome over the past 24 hours. We'll continue to follow. Family has been updated on the condition.. Care evaluation 35 minutes. Time with Patient: Greater than 30
[2016-10-01] MEDS: MAGNESIUM SULFATE-D5W PMX 1 GM in DEXTROSE/WATER 1 100ML.BAG IVPB SCH ×2 (10:55→12:57)
[2016-10-01] MEDS: POTASSIUM PHOSPHATE 10 MMOL in SODIUM CHLORIDE 0.9% 250 ML IV SCH ×2 (10:55→12:57)
[2016-10-01 13:03] LABS: Glucose,Whole Blood 113 mg/dL (75-99)
--- NOTE | 2016-10-01 14:47 | P.PN ---
Subjective This patient is a 31-year-old right-handed white female who was initially found unresponsive at home with a drug overdose. Family provided history stating the patient had used Flakka which is a [place] plant which was apparently injected into her vein. This drug is associated with agitation, delirium, paranoia, and aggression. Patient was brought into the emergency room on initial evaluation and was noted to have seizure-like activity. She was started on Keppra intubated and transferred to the intensive care unit. Initially she was placed on Diprivan for sedation. She has been off of all sedation in Diprivan since 12 noon yesterday. She has not shown much improvement in her neurological status today despite being off of all sedation. She has had no further seizure- like activity noted by the ICU nursing staff. Keppra blood level is pending at this time. The patient remains obtunded. She does withdraw to painful stimuli. She does not open eyes spontaneously. She has had multiple CT scans of the brain the last CAT scan failed to reveal any evidence of acute stroke or hemorrhage. The patient had a follow-up EEG today in the ICU for comparison reasons. Her previous EEG was done on 09/29/2016. Her EEG today was reviewed and continues to reveal evidence of severe slowing with a background of 4 Hz. There is no evidence of any epileptiform discharges. EEG shows no significant improvement from her previous EEG and is consistent with a severe diffuse hypoxic encephalopathy secondary to drug overdose. Patient's family has been updated on her overall neurological status by pulmonary medicine. Her overall prognosis at this time remains very guarded. As noted she has remained off of all sedation since 12 noon yesterday and is not showing any signs of awakening at this time. She does have some pupillary responses and corneal responses intact. She does withdraw to painful stimuli overall 4 extremities. She continues remained comatose however with no significant change or improvement in her neurological status. We will continue to follow this patient closely in the intensive care unit. Overall prognosis at this time remains very guarded. Objective - Vital Signs Vital signs: Vital Signs Temp 100.3 F H 10/01/16 04:00 Pulse 82 10/01/16 13:00 Resp 16 10/01/16 13:00 BP 142/70 10/01/16 13:00 Pulse Ox 100 10/01/16 13:00 Intake & Output 02/11/1110/01/16 10/01/16 18:59 06:59 18:59 Intake Total 982.692 5975 650 Output Total 1000 460 490 Balance -263.752 730 160 Weight 55.8 kg 54 kg Intake: IV 600 600 350 normal saline 600 600 350 Intake, IV Titration 96.248 100 Amount Propofol 500 mg In Empty 96.248 Bag 1 bag @ Titrate IV . Q0M [facility] Rx#:[id number] levETIRAcetam IV 1,000 mg 100 In Saline 1 100ml.bag @ 400 mls/hr IVPB Q12HR [facility] Rx#:[id number] Tube Feeding 40 400 300 Other 90 Output: Urine 1000 460 490 Other: Voiding Method Indwelling Catheter Indwelling Catheter Indwelling Catheter # Bowel Movements 0 0 - Exam Physical examination: PHYSICAL EXAMINATION: Patient remains intubated on the ventilator in the ICU. She has no spontaneous movements. She arouses to sternal rub. VITAL SIGNS: Blood pressure is [142/70]. Heart rate is [82]. Respiration is [16] . Temperature is [98.2]. HEENT: Head is atraumatic, neck is supple, there were no carotid bruits. CHEST: Lungs are clear to auscultation and percussion. CARDIAC: S1, S2 normal rate and rhythm. There is no murmur. ABDOMEN: Soft and nontender. Bowel sounds are present. EXTREMITIES: There is no pedal edema. Peripheral pulses are present. Neurological examination: Patient is intubated on the ventilator in the intensive care unit. She remains off of all sedation for over 24 hours. She arouses minimally to sternal rub. She does withdraw to painful stimuli overall 4 extremities. Deep tendon reflexes are hypoactive 1+. No Babinski response elicited. - Labs CBC & Chem 7: 10/01/16 05:15 10/01/16 06:41 Labs: Abnormal Lab Results - Last 24 Hours (Table) 10/01/16 10/01/16 10/01/16 Range/Units 01:01 05:03 05:15 WBC 15.6 H (3.8-10.6) k/uL RBC 3.77 L (3.80-5.40) m/uL Hgb 11.3 L (11.4-16.0) gm/dL Plt Count 146 L (150-450) k/uL Neutrophils # 14.3 H (1.3-7.7) k/uL Lymphocytes # 0.5 L (1.0-4.8) k/uL ABG pCO2 31 L (35-45) mmHg ABG pO2 154 H (83-108) mmHg ABG HCO3 18 L (21-25) mmol/L ABG O2 Saturation 99.0 H (94-97) % Chloride (98-107) mmol/L Carbon Dioxide (22-30) mmol/L Creatinine (0.52-1.04) mg/dL Glucose (74-99) mg/dL POC Glucose (mg/dL) 134 H (75-99) mg/dL Calcium (8.4-10.2) mg/dL Phosphorus (2.5-4.5) mg/dL AST (14-36) U/L ALT (9-52) U/L Total Protein (6.3-8.2) g/dL Albumin (3.5-5.0) g/dL 10/01/16 10/01/16 10/01/16 Range/Units 05:15 06:41 07:14 WBC (3.8-10.6) k/uL RBC (3.80-5.40) m/uL Hgb (11.4-16.0) gm/dL Plt Count (150-450) k/uL Neutrophils # (1.3-7.7) k/uL Lymphocytes # (1.0-4.8) k/uL ABG pCO2 (35-45) mmHg ABG pO2 (83-108) mmHg ABG HCO3 (21-25) mmol/L ABG O2 Saturation (94-97) % Chloride 111 H 110 H (98-107) mmol/L Carbon Dioxide 20 L (22-30) mmol/L Creatinine 0.48 L 0.49 L (0.52-1.04) mg/dL Glucose 143 H 148 H (74-99) mg/dL POC Glucose (mg/dL) 143 H (75-99) mg/dL Calcium 8.3 L (8.4-10.2) mg/dL Phosphorus 1.8 L (2.5-4.5) mg/dL AST 80 H 70 H (14-36) U/L ALT 123 H 119 H (9-52) U/L Total Protein 6.1 L 5.8 L (6.3-8.2) g/dL Albumin 3.1 L 3.0 L (3.5-5.0) g/dL 10/01/16 Range/Units 13:01 WBC (3.8-10.6) k/uL RBC (3.80-5.40) m/uL Hgb (11.4-16.0) gm/dL Plt Count (150-450) k/uL Neutrophils # (1.3-7.7) k/uL Lymphocytes # (1.0-4.8) k/uL ABG pCO2 (35-45) mmHg ABG pO2 (83-108) mmHg ABG HCO3 (21-25) mmol/L ABG O2 Saturation (94-97) % Chloride (98-107) mmol/L Carbon Dioxide (22-30) mmol/L Creatinine (0.52-1.04) mg/dL Glucose (74-99) mg/dL POC Glucose (mg/dL) 113 H (75-99) mg/dL Calcium (8.4-10.2) mg/dL Phosphorus (2.5-4.5) mg/dL AST (14-36) U/L ALT (9-52) U/L Total Protein (6.3-8.2) g/dL Albumin (3.5-5.0) g/dL Microbiology - Last 24 Hours (Table) 09/29/16 03:50 Gram Stain - Final Sputum Sputum Culture - Final Marian albicans 09/30/16 04:51 Blood Culture - Preliminary Blood No Growth after 24 hours 09/30/16 04:36 Blood Culture - Preliminary Blood No Growth after 24 hours Assessment and Plan (1) Acute metabolic encephalopathy Status: Acute Code(s): G93.41 - METABOLIC ENCEPHALOPATHY (2) Heroin overdose Status: Acute Code(s): T40.1X1A - POISONING BY HEROIN, ACCIDENTAL ( UNINTENTIONAL), INIT ENCNTR Plan: This patient is a 31-year-old right-handed white female who is been followed in the intensive care unit following drug overdose and severe metabolic encephalopathy. She remains intubated on the ventilator with no significant improvement in her overall neurological status. She is remained off of all sedation since 12 noon yesterday with no significant improvement in her mental status. She remains obtunded on the ventilator. She arouses to painful stimuli and sternal rub. She essentially remains comatose at this time. She had a follow-up EEG which failed to reveal any significant improvement in her EEG background activity as compared to previous EEG done on 09/29/2016. Patient continues in the intensive care unit with close monitoring. Her Keppra blood level was drawn today and is pending from the laboratory. We will continue close neurological follow-up with this patient in the ICU. She is not showing much significant improvement in her overall mental status since admission to the ICU. Overall prognosis at this time remains very guarded.
--- NOTE | 2016-10-01 17:23 | PN ---
DATE OF SERVICE: 10/01/2016 This 31-year-old woman who was admitted with unresponsive and acute cardiorespiratory failure was admitted with overdose of with cardiorespiratory failure and arrest, acute hypoxic respiratory failure. The patient is off sedation but still she has minimal responsiveness at this time. The EEG done 2 days ago showed severe widespread diffuse disturbance of cerebral function. Past medical history reviewed. Review of systems could not be taken, the patient mechanically sedated. The current medications are reviewed and include: 1. Rocephin 1 gram IV daily. 2. Neurontin. 3. Keppra 1 gm b.i.d. 4. Supplementation. 5. Narcan. 6. Protonix. 7. Heparin subcu 5000 q.8. PHYSICAL EXAMINATION: Pulse is 82, blood pressure 142/70, respirations 16, temperature normal, pulse ox 100% on 30% mechanical ventilation. HEENT: Conjunctivae normal. Oral mucosa moist. NECK: No jugular venous distention. No thyroid enlargement or carotid bruit. No lymph node enlargement. CARDIOVASCULAR: S1, S2 muffled. No S3, no S4. RESPIRATORY: Breath sounds diminished in the bases. A few scattered rhonchi, no crackles. ABDOMEN: Soft and nontender. No mass palpable. Legs: No edema, no swelling. Nervous system: Higher function as mentioned. Moves all four limbs. No focal deficits. LYMPHATICS: No lymph nodes palpable in the neck, axillae or groin. SKIN: No ulcer, rash or bleeding. LABS: WBC 15.6, Hemoglobin 11.3. Otherwise, AST is 80, and ALT is 123. ASSESSMENT: 1. Over dosage of with cardiorespiratory arrest and acute hypoxic respiratory failure on mechanical ventilation. 2. Change in mental status metabolic alkalosis secondary to overdose. 3. Increased WBC. 4. Metabolic acidosis. 5. Seizure disorder underlying. 6. Increased random blood sugar. 7. Increased AST, ALT, possible hepatitis secondary to drug abuse. 8. Increased creatinine kinase. 9. History of anxiety. 10. Increased WBC. 11. Hypophosphatemia. 12. Anemia. 13. Thrombocytopenia, mild. RECOMMENDATIONS AND DISCUSSION: In this 31-year-old woman who presented with multiple complex medical issues, we will monitor the patient closely. Continue the current medications. Continue symptomatic treatment. Otherwise, at this time I would recommend continue the current medications. Continue symptomatic treatment. Dr. Rm Tucker is planning another EEG. The patient is on Keppra at this time, continue to monitor. The prognosis is guarded because of multiple complex medical issues. Further recommendations to follow. MTDD
[2016-10-01 18:12] LABS: Glucose,Whole Blood 130 mg/dL (75-99)
--- NOTE | 2016-10-01 19:00 | EEG ---
DATE OF SERVICE: 10/01/2016 REFERRING PHYSICIAN: Dr. Junior. CONSULTING INTERPRETING PHYSICIAN: Dr. Sawyer Tucker. INDICATIONS FOR EXAMINATION: AGE: 31Y INDICATIONS FOR EXAMINATION: This patient is a 31-year-old female admitted to the intensive care unit for drug overdose and obtundation. The patient remains comatose and this is a follow-up EEG for comparison. EEG FINDINGS: A routine 21-channel, awake digital EEG recording was accomplished utilizing the 10 to 20 international system with bipolar and referential montages. The background activity in the most alert resting state consists of a poorly developed and poorly sustained 4 Hz activity over the posterior head regions. This posterior rhythm attenuates minimally to eye opening. There is a small amount of low amplitude 18 to 20 Hz beta activity seen maximally over the anterior head regions. Muscle and movement artifact was observed on a few occasions during the tracing. Hyperventilation was not performed. Photic stimulation at flash frequencies of 2 to 30 Hz produced a minimal occipital driving response. Towards the mid and latter portion of the tracing, there is 5 to 6 Hz activity seen intermittently. No epileptiform discharges were seen. IMPRESSION: This EEG continues to give evidence of a severe widespread diffuse disturbance in cerebral function. The EEG failed to reveal any focal, lateralized or epileptiform abnormalities. Compared to a previous EEG performed on 09/29/2016. There is no significant improvement in the EEG background. Clinical correlation is recommended.
[2016-10-01] MEDS ORDERED: IV VANCOMYCIN PER PHARMACY 1 EACH MISC MISCELLANE PRN (21:32)
[2016-10-02] MEDS: VANCOMYCIN 1,000 MG in SODIUM CHLORIDE 0.9% 250 ML IVPB SCH ×4 (00:34→22:32)
[2016-10-02] MEDS: HEPARIN SODIUM,PORCINE 5,000 UNIT/ML 1 ML VIAL SQ SCH ×4 (00:35→23:59)
[2016-10-02] MEDS: INSULIN LISPRO (humaLOG) 300 UNIT/3 ML VIAL SQ SCH ×4 (00:42→18:58)
[2016-10-02 00:43] LABS: Glucose,Whole Blood 135 mg/dL (75-99)
[2016-10-02 04:58] LABS: Basophils % (A) 0 %; CH 30.1; CHCM 32.9; Eosinophils # (A) 0.1 k/uL (0-0.7); Eosinophils % (A) 0 %; HCT 32.5 % (34.0-46.0); HDW 2.49; HGB 10.6 gm/dL (11.4-16.0); Luc # (Auto) 0.18; Luc % (Auto) 1; Lymphocytes # (A) 0.7 k/uL (1.0-4.8); Lymphocytes % (A) 5 %; MCHC 32.7 g/dL (31.0-37.0); MCV 91.8 fL (80.0-100.0); Mean Platelet Volume 8.3; Monocytes # (A) 0.6 k/uL (0-1.0); Monocytes % (A) 5 %; Neutrophils # (A) 11.9 k/uL (1.3-7.7); Neutrophils % (A) 88 %; RBC 3.54 m/uL (3.80-5.40); RDW 12.1 % (11.5-15.5); WBC 13.5 k/uL (3.8-10.6); WBC (Perox) 14.54
[2016-10-02 05:13] LABS: ALT 108 U/L (9-52); AST 68 U/L (14-36); Alkaline Phosphatase 89 U/L (38-126); Anion Gap 12 mmol/L; Blood Urea Nitrogen 12 mg/dL (7-17); Calcium 8.5 mg/dL (8.4-10.2); Carbon Dioxide 19 mmol/L (22-30); Chloride 110 mmol/L (98-107); Glucose 129 mg/dL (74-99); Magnesium 1.9 mg/dL (1.6-2.3); Non-African American GFR(MDRD) >60 (>60 ml/min/1.73 sqM); Phosphorous 1.5 mg/dL (2.5-4.5); Potassium 3.9 mmol/L (3.5-5.1); Sodium 141 mmol/L (137-145); Total Bilirubin 0.5 mg/dL (0.2-1.3)
[2016-10-02] MEDS ORDERED: POTASSIUM CHLORIDE ORAL LIQUID 40 MEQ/30 ML CUP NG-TUBE SCH (06:00)
[2016-10-02 06:35] LABS: Glucose,Whole Blood 120 mg/dL (75-99)
[2016-10-02] MEDS: SODIUM PHOSPHATE 10 MMOL in SODIUM CHLORIDE 0.9% 250 ML IVPB SCH ×2 (06:35→10:28)
[2016-10-02] MEDS: MAGNESIUM SULFATE-D5W PMX 1 GM in DEXTROSE/WATER 1 100ML.BAG IVPB SCH ×2 (06:35→10:29)
--- NOTE | 2016-10-02 07:01 | XR ---
EXAMINATION TYPE: XR chest 1V portable DATE OF EXAM: 10/02/2016 6:47 AM COMPARISON: October 01, 2016 HISTORY: SOB, Follow Up FINDINGS: Indwelling tubes and catheters are unchanged. No change in left basilar atelectasis or infiltrate. Stable appearance of the cardio-mediastinal structures at this time. Pleural effusion unchanged. IMPRESSION: 1. Stable portable chest. Clinical correlation and follow up until resolution is recommended.
[2016-10-02] MEDS: levETIRAcetam IV 1,000 MG in SALINE 1 100ML.BAG IVPB SCH ×2 (09:18→20:39)
[2016-10-02] MEDS: CHLORHEXIDINE GLUCONATE 15 ML CUP MUCOUS MEM SCH ×2 (09:19→20:24)
[2016-10-02] MEDS: GABAPENTIN 300 MG CAP PO SCH ×2 (09:19→20:24)
[2016-10-02] MEDS: PANTOPRAZOLE 40 MG/10 ML VIAL IV SCH (09:19)
--- NOTE | 2016-10-02 11:33 | P.PN ---
Subjective This patient is a 31-year-old right-handed white female who was initially found unresponsive at home with a drug overdose. Family provided history stating the patient had used Flakka which is a [place] plant which was apparently injected into her vein. This drug is associated with agitation, delirium, paranoia, and aggression. Patient was brought into the emergency room on initial evaluation and was noted to have seizure-like activity. She was started on Keppra intubated and transferred to the intensive care unit. Initially she was placed on Diprivan for sedation. She has been off of all sedation in Diprivan since 12 noon yesterday. She has not shown much improvement in her neurological status today despite being off of all sedation. She has had no further seizure- like activity noted by the ICU nursing staff. Keppra blood level is pending at this time. The patient remains obtunded. She does withdraw to painful stimuli. She does not open eyes spontaneously. She has had multiple CT scans of the brain the last CAT scan failed to reveal any evidence of acute stroke or hemorrhage. The patient had a follow-up EEG today in the ICU for comparison reasons. Her previous EEG was done on 09/29/2016. Her EEG today was reviewed and continues to reveal evidence of severe slowing with a background of 4 Hz. There is no evidence of any epileptiform discharges. EEG shows no significant improvement from her previous EEG and is consistent with a severe diffuse hypoxic encephalopathy secondary to drug overdose. Patient's family has been updated on her overall neurological status by pulmonary medicine. Her overall prognosis at this time remains very guarded. As noted she has remained off of all sedation since 12 noon yesterday and is not showing any signs of awakening at this time. She does have some pupillary responses and corneal responses intact. She does withdraw to painful stimuli overall 4 extremities. Neurological exam in the ICU today shows slightly more brisk pupillary response. She still remains somewhat obtunded on the ventilator. As noted her repeat EEG done yesterday failed to reveal any significant improvement in her background activity. No evidence of any seizure activity. Her Keppra blood level is pending this morning and should be available tomorrow for review. We will continue to follow this patient closely in the intensive care unit. Overall prognosis at this time remains very guarded. Objective - Vital Signs Vital signs: Vital Signs Temp 98 F 10/02/16 09:00 Pulse 129 H 02/05/17 09:00 Resp 37 H 10/02/16 09:00 BP 145/80 10/02/16 09:00 Pulse Ox 100 10/02/16 08:00 Intake & Output 10/01/16 10/02/16 10/02/16 18:59 06:59 18:59 Intake Total 1170 2285 285 Output Total 785 795 275 Balance 385 1490 10 Weight 54.1 kg Intake: IV 600 600 150 normal saline 600 600 150 Intake, IV Titration 950 Amount Magnesium Sulfate-D5w Pmx 100 1 gm In Dextrose/Water 1 100ml.bag @ 100 mls/hr IVPB Q1H [facility] Rx#: [id number] Sodium Phosphate 10 mmol 250 In Sodium Chloride 0.9% 250 ml @ 125 mls/hr IVPB Q2H [facility] Rx#:[id number] Vancomycin 1,000 mg In 500 Sodium Chloride 0.9% 250 ml @ 125 mls/hr IVPB Q8H [facility] Rx#:[id number] levETIRAcetam IV 1,000 mg 100 In Saline 1 100ml.bag @ 400 mls/hr IVPB Q12HR [facility] Rx#:[id number] Tube Feeding 570 675 135 Other 60 Output: Urine 785 795 275 Other: Voiding Method Indwelling Catheter Indwelling Catheter Indwelling Catheter # Bowel Movements 0 1 - Exam Physical examination: PHYSICAL EXAMINATION: Patient remains intubated on the ventilator in the ICU. She has no spontaneous movements. She arouses to sternal rub. VITAL SIGNS: Blood pressure is [145/80]. Heart rate is [120]. Respiration is [25 ]. Temperature is [98.0]. HEENT: Head is atraumatic, neck is supple, there were no carotid bruits. CHEST: Lungs are clear to auscultation and percussion. CARDIAC: S1, S2 normal rate and rhythm. There is no murmur. ABDOMEN: Soft and nontender. Bowel sounds are present. EXTREMITIES: There is no pedal edema. Peripheral pulses are present. Neurological examination: Patient is intubated on the ventilator in the intensive care unit. She remains off of all sedation for over 24 hours. She arouses minimally to sternal rub. She does withdraw to painful stimuli overall 4 extremities. Pupils slightly more reactive to light and corneal response today Deep tendon reflexes are hypoactive 1+. No Babinski response elicited. - Labs CBC & Chem 7: 10/02/16 04:25 10/02/16 04:25 Labs: Abnormal Lab Results - Last 24 Hours (Table) 10/01/16 10/01/16 10/02/16 Range/Units 13:01 18:10 00:41 WBC (3.8-10.6) k/uL RBC (3.80-5.40) m/uL Hgb (11.4-16.0) gm/dL Hct (34.0-46.0) % Neutrophils # (1.3-7.7) k/uL Lymphocytes # (1.0-4.8) k/uL Chloride (98-107) mmol/L Carbon Dioxide (22-30) mmol/L Creatinine (0.52-1.04) mg/dL Glucose (74-99) mg/dL POC Glucose (mg/dL) 113 H 130 H 135 H (75-99) mg/dL Phosphorus (2.5-4.5) mg/dL AST (14-36) U/L ALT (9-52) U/L Total Protein (6.3-8.2) g/dL Albumin (3.5-5.0) g/dL 10/02/16 10/02/16 10/02/16 Range/Units 04:25 04:25 06:33 WBC 13.5 H (3.8-10.6) k/uL RBC 3.54 L (3.80-5.40) m/uL Hgb 10.6 L (11.4-16.0) gm/dL Hct 32.5 L (34.0-46.0) % Neutrophils # 11.9 H (1.3-7.7) k/uL Lymphocytes # 0.7 L (1.0-4.8) k/uL Chloride 110 H (98-107) mmol/L Carbon Dioxide 19 L (22-30) mmol/L Creatinine 0.40 L (0.52-1.04) mg/dL Glucose 129 H (74-99) mg/dL POC Glucose (mg/dL) 120 H (75-99) mg/dL Phosphorus 1.5 L (2.5-4.5) mg/dL AST 68 H (14-36) U/L ALT 108 H (9-52) U/L Total Protein 6.0 L (6.3-8.2) g/dL Albumin 3.1 L (3.5-5.0) g/dL Microbiology - Last 24 Hours (Table) 09/30/16 04:36 Blood Culture - Preliminary Blood No Growth after 48 hours 09/30/16 04:51 Blood Culture Gram Stain - Preliminary Blood 09/30/16 04:51 Blood Culture - Preliminary Blood 09/29/16 03:50 Gram Stain - Final Sputum Sputum Culture - Final Marian albicans Assessment and Plan (1) Acute metabolic encephalopathy Status: Acute Code(s): G93.41 - METABOLIC ENCEPHALOPATHY (2) Heroin overdose Status: Acute Code(s): T40.1X1A - POISONING BY HEROIN, ACCIDENTAL ( UNINTENTIONAL), INIT ENCNTR Plan: This patient is a 31-year-old right-handed white female who is been followed in the intensive care unit following drug overdose and severe metabolic encephalopathy. She remains intubated on the ventilator with no significant improvement in her overall neurological status. She is remained off of all sedation since 12 noon yesterday with no significant improvement in her mental status. She remains obtunded on the ventilator. She arouses to painful stimuli and sternal rub. She essentially remains comatose at this time. She had a follow-up EEG which failed to reveal any significant improvement in her EEG background activity as compared to previous EEG done on 09/29/2016. Patient continues in the intensive care unit with close monitoring. Her Keppra blood level was drawn yesterday and is pending from the laboratory. Her pupils are slightly more reactive today. Corneal responses intact bilaterally. Patient continues to demonstrate evidence of a diffuse encephalopathy at this time. We will await further recommendations from tito and his son regarding weaning parameters. She likely will not be able to wean until early next week. We will continue close neurological follow-up with this patient in the ICU. She is not showing much significant improvement in her overall mental status since admission to the ICU. Overall prognosis at this time remains very guarded.
[2016-10-02 12:10] LABS: Glucose,Whole Blood 129 mg/dL (75-99)
--- NOTE | 2016-10-02 13:39 | P.PN ---
Subjective 31-year-old female patient was brought into the emergency department after being found unresponsive suspecting a drug overdose. This patient is a long- term heroin abuser. At one point she was clean for a total of 9 months and she was using some subaxone. Apparently, she is back and doing drugs along with her . Yesterday, she was last seen doing drugs and her mother's in-laws house accompanied by her . The patient and her weren't and bedroom in the same house a different level when the [id number] went to check on them and they patient was found to be completely unresponsive. The himself was under the influence of the drug. The exact downtime is not known and it is estimated to be more than 30 minutes at least. The father-in- law on another brother from the same mother started CPR on the patient. EMS was called to the scene. The patient was given a total of 8 mg of Narcan with some response however they overall response was suboptimal. In the emergency department, the patient was not following any commands no she was responding to deep painful stimuli. At that point the patient was intubated and started on mechanical ventilation. At that she came into the intensive care unit the patient started doing some activity which was essentially twitching and this was perceived to be some agitation by the nursing staff and she was placed on Diprivan overnight. This morning, during my lean sensei rounds, to this patient off Diprivan and immediately it was noted that the patient was having rapid jerks somewhat myoclonic and the twitching was on her face both upper extremities and lower extremities. This was typical of seizure, probably tonic- clonic with some myoclonic features and based on that she was given a total of 100 mg of Diprivan bolus and started back on Diprivan drip and started on IV Keppra 1 g twice a day. EEG was ordered on a stat basis. The patient was on a mechanical ventilator on assist control mode and the chest x-ray from this morning showed no acute abnormalities. CAT scan of the brain that was done in the emergency department was also negative. Note that her urine drug screen was negative and after an extensive search and interrogation of the family will follow the patient has used Flakka , which is a [place] planned that had been melted and shots into her vein. This is an alpha -PVP drug that can cause agitation, delirium, paranoia, aggression, and has also been linked to , malignant hyperthermia, acute myocardial infarction. Clinically, the patient remains completely unresponsive. In fact she is on Diprivan for now and the jerking activity has subsided. She is hemodynamically stable. She is afebrile. Pupils are quite dilated at 6-7 mm in size. Reflexes are within normal in all 4 extremities laterally. On 09/30/2016 the patient is being seen in follow-up. As mentioned yesterday, the patient is a drug overdose case and the patient has signs of severe hypoxic encephalopathy. She was having seizure activity yesterday and based on that I put her on Diprivan and start on Keppra. Follow-up EEG was done and it showed evidence of severe widespread diffuse disturbance in the cerebral function. There was no evidence of any focal lateralizing or epileptiform activities. The patient as such was kept on the Diprivan and Keppra overnight and this morning she was taken off the Diprivan and she was given a holiday. The patient remained completely unresponsive. No junk activity was noted. The patient is unresponsive to any deep painful stimuli. She remains deeply comatose. She is still on IV Keppra for now 1 g every 12 hours. Neurology is on the case and strongly suspecting severe hypoxic/anoxic encephalopathy. Meanwhile, we are considering the rest of the supportive care. The patient remains on a mechanical ventilator. Chest x-ray today is clear. Blood gases were noted. The patient is oxygenating well. The patient will be started on tube feeds today. The patient did have a spike of temperature and she'll be cultured including sputum and blood and urine and she was started on empiric antibiotic coverage with IV Zosyn. On 10/01/2016 the patient is being seen in follow-up. As mentioned, yesterday morning the patient was taken off sedation. The prevent was discontinued. She did not have any seizure activity noted. On the. Neurologic examination the patient was noted to be still unresponsive. This morning, she had some minimal response to deep painful stimuli. She is occasionally breathing above the mechanical ventilator. She has a good cough reflex. Pupils are round 4 mm in size and there reactive to light. There is no nystagmus. No Babinski. No clonus. DTRs are diminished and +1 in upper and lower extremities. No abnormal jerky body movements. The patient remains on Keppra. Fever has been treated and the patient is currently afebrile. IV Rocephin was started as an empiric antibiotic coverage. The patient is on a mechanical ventilator and the vent setting currently is an assist-control of 16, tidal volume 400, FiO2 of 30 % and a PEEP of 5. Chest x-rayDone today is clear and the patient is currently on IV Rocephin as a empiric antibiotic coverage. On 10/02/2016 the patient is being seen in follow-up. The patient is still off any form of sedation. Unfortunately the neurologic recovery has been minimal. The patient remains comatose. She does withdraw to deep painful stimuli. She does not open her eyes spontaneously. She does not reveal any seizure activity. At times she gets tachycardic and this septal spontaneously. She remains on a mechanical ventilator. No fever or chills. No other significant events overnight. EEG had shown diffuse slowing with a background of 4 Hz activity and there is no evidence of any seizure activity noted. Prognosis remains very guarded. The patient is still on Keppra and the antiepileptic medication levels are being managed by neurology. Objective - Vital Signs Vital signs: Vital Signs Temp 97.3 F L 10/02/16 12:00 Pulse 124 H 10/02/16 13:00 Resp 24 10/02/16 13:00 BP 138/73 10/02/16 13:00 Pulse Ox 100 10/02/16 13:00 Intake & Output 10/01/16 10/02/16 10/02/16 18:59 06:59 18:59 Intake Total 1170 2285 620 Output Total 785 795 650 Balance 385 1490 -30 Weight 54.1 kg Intake: IV 600 600 350 normal saline 600 600 350 Intake, IV Titration 950 Amount Magnesium Sulfate-D5w Pmx 100 1 gm In Dextrose/Water 1 100ml.bag @ 100 mls/hr IVPB Q1H [facility] Rx#: [id number] Sodium Phosphate 10 mmol 250 In Sodium Chloride 0.9% 250 ml @ 125 mls/hr IVPB Q2H [facility] Rx#:[id number] Vancomycin 1,000 mg In 500 Sodium Chloride 0.9% 250 ml @ 125 mls/hr IVPB Q8H [facility] Rx#:[id number] levETIRAcetam IV 1,000 mg 100 In Saline 1 100ml.bag @ 400 mls/hr IVPB Q12HR REPLACED BY [facility] Rx#:[id number] Tube Feeding 570 442 424 Other 60 Output: Urine 785 795 650 Other: Voiding Method Indwelling Catheter Indwelling Catheter Indwelling Catheter # Bowel Movements 0 1 - Exam Patient is calm and comfortable and intubated on mechanical ventilator.Head exam was generally normal. There was no scleral icterus or corneal arcus. Mucous membranes were moist. Neck was supple and without jugular venous distension, thyromegaly, or carotid bruits. Carotids were easily palpable bilaterally. There was no adenopathy. Orogastric and orotracheal tube are both in place.Cardiac exam revealed the PMI to be normally situated and sized. The rhythm was regular and no extrasystoles were noted during several minutes of auscultation. The first and second heart sounds were normal and physiologic splitting of the second heart sound was noted. There were no murmurs, rubs, clicks, or gallops.Lungs were clear to auscultation and percussion, and with normal diaphragmatic excursion. No wheezes or rales were noted. Abdominal exam revealed normal bowel sounds. The abdomen was soft, non-tender, and without masses, organomegaly, or appreciable enlargement of the abdominal aorta.Examination of the extremities revealed easily palpable radial, femoral and pedal pulses. There was no cyanosis, clubbing or edema. Neurologically, the patient has minimal sluggish response to deep painful stimuli that was applied to her chest and lower extremities bilaterally. Reflexes are +1, no rigidity, no Babinski, no clonus, no facial asymmetry, she has a good cough and gag reflex and a gag reflex, pupils around 4 mm in size and they are reactive to light, no nystagmus, she is at times breathing above the mechanical ventilator. As such, the patient remains deeply comatose. - Labs CBC & Chem 7: 10/02/16 04:25 10/02/16 04:25 Labs: Abnormal Lab Results - Last 24 Hours (Table) 10/01/16 10/02/16 10/02/16 Range/Units 18:10 00:41 04:25 WBC 13.5 H (3.8-10.6) k/uL RBC 3.54 L (3.80-5.40) m/uL Hgb 10.6 L (11.4-16.0) gm/dL Hct 32.5 L (34.0-46.0) % Neutrophils # 11.9 H (1.3-7.7) k/uL Lymphocytes # 0.7 L (1.0-4.8) k/uL Chloride (98-107) mmol/L Carbon Dioxide (22-30) mmol/L Creatinine (0.52-1.04) mg/dL Glucose (74-99) mg/dL POC Glucose (mg/dL) 130 H 135 H (75-99) mg/dL Phosphorus (2.5-4.5) mg/dL AST (14-36) U/L ALT (9-52) U/L Total Protein (6.3-8.2) g/dL Albumin (3.5-5.0) g/dL 10/02/16 10/02/16 10/02/16 Range/Units 04:25 06:33 12:08 WBC (3.8-10.6) k/uL RBC (3.80-5.40) m/uL Hgb (11.4-16.0) gm/dL Hct (34.0-46.0) % Neutrophils # (1.3-7.7) k/uL Lymphocytes # (1.0-4.8) k/uL Chloride 110 H (98-107) mmol/L Carbon Dioxide 19 L (22-30) mmol/L Creatinine 0.40 L (0.52-1.04) mg/dL Glucose 129 H (74-99) mg/dL POC Glucose (mg/dL) 120 H 129 H (75-99) mg/dL Phosphorus 1.5 L (2.5-4.5) mg/dL AST 68 H (14-36) U/L ALT 108 H (9-52) U/L Total Protein 6.0 L (6.3-8.2) g/dL Albumin 3.1 L (3.5-5.0) g/dL Microbiology - Last 24 Hours (Table) 09/30/16 04:36 Blood Culture - Preliminary Blood No Growth after 48 hours 09/30/16 04:51 Blood Culture Gram Stain - Preliminary Blood 09/30/16 04:51 Blood Culture - Preliminary Blood 09/29/16 03:50 Gram Stain - Final Sputum Sputum Culture - Final Marian albicans Assessment and Plan Plan: Assessment 1 acute drug intoxication. The patient has injected herself with Flekka, [place] plant, and this is known to be a an alpha- PVP, a synthetic stimulant of the cathinon-class, a drug is associated with that his suicides and drug overdoses. 2 hypoxic encephalopathy secondary to drug overdose. The patient is currently Off sedation and she is deeply comatose. Neurology is on the case and will do agree. Neurologic examinations. EEG showed diffuse slowing without evidence of any seizure activity. The patient remains on Keppra. Repeat CAT scan of the brain showed no acute abnormalities. On 10/01/2016, the patient remains deeply comatose. No obvious seizure activity noted. Her latest EEG has shown diffuse slowing and the patient remains on Keppra. The patient has signs of severe hypoxic/anoxic encephalopathy following her acute drug intoxication and cardiopulmonary arrest. A follow-up EEG will be done today. We'll monitor neurological outcome. Intensive care unit. The patient me will be kept intubated and mechanical ventilator. The rest of the supportive care will be also continued. On 10/02/2016, the patient remains comatose without much of an improvement over the past 24 hours. The EEG had shown diffuse slowing without any improvement compared to the previous EKG findings. Prognosis remains extremely guarded. 3 generalized seizures, currently inactive The EEG performed yesterday while the patient on Diprivan showed no seizure activity and there was diffuse slowing. A follow-up EEG needs to be done later stage. Meanwhile the patient was taken off Diprivan and she is currently on IV Keppra. 4 long history of IV drug use, involving heroin 5 leukocytosis 6 non-anion gap metabolic acidosis 7 negative urine drug screen 8 new-onset fever, rule out infection, rule out neurogenic fever. Plan Patient is suffering from severe hypoxic encephalopathy. She is deeply comatose. EEG is showing diffuse slowing without any epileptiform foci. We are still continuing the supportive care at this point. We'll continue vent support. Continue the tube feeds. Empiric antibiotics. Avoid any hyperthermia. Will continue monitoring the neurological outcome over the next few days and have further discussion with the family regarding goals of treatment. I do not foresee any immediate recovery in terms of her neurological functions and prognosis remains very guarded. This has been discussed with the family. There is a critically care evaluation 31 minutes. Time with Patient: Greater than 30
[2016-10-02 18:57] LABS: Glucose,Whole Blood 116 mg/dL (75-99)
[2016-10-02] MEDS: PROPOFOL 500 MG in EMPTY BAG 1 BAG IV SCH ×2 (20:58→22:32)
[2016-10-03] MEDS: INSULIN LISPRO (humaLOG) 300 UNIT/3 ML VIAL SQ SCH ×4 (00:01→18:38)
[2016-10-03 00:03] LABS: Glucose,Whole Blood 107 mg/dL (75-99)
[2016-10-03 04:38] LABS: ABG HCO3 22 mmol/L (21-25); ABG Oxygen Saturation 99.1 % (94-97); ABG PCO2 32 mmHg (35-45); ABG PH 7.44 (7.35-7.45); ABG PO2 132 mmHg (83-108); ABG TCO2 23 mmol/L (19-24)
[2016-10-03 04:44] LABS: Basophils # (A) 0.2 k/uL (0-0.2); Basophils % (A) 2 %; CH 30.2; CHCM 33.1; Eosinophils # (A) 0.2 k/uL (0-0.7); Eosinophils % (A) 2 %; HCT 31.4 % (34.0-46.0); HDW 2.56; HGB 10.1 gm/dL (11.4-16.0); Luc % (Auto) 2; Lymphocytes % (A) 11 %; MCH 29.5 pg (25.0-35.0); MCHC 32.2 g/dL (31.0-37.0); MCV 91.7 fL (80.0-100.0); Mean Platelet Volume 8.7; Monocytes # (A) 0.6 k/uL (0-1.0); Monocytes % (A) 7 %; Neutrophils # (A) 6.9 k/uL (1.3-7.7); Neutrophils % (A) 76 %; RBC 3.43 m/uL (3.80-5.40); RDW 12.3 % (11.5-15.5); WBC 9.1 k/uL (3.8-10.6); WBC (Perox) 9.96
[2016-10-03 04:54] LABS: ALT 95 U/L (9-52); AST 56 U/L (14-36); Alkaline Phosphatase 82 U/L (38-126); Anion Gap 8 mmol/L; Blood Urea Nitrogen 12 mg/dL (7-17); Calcium 8.5 mg/dL (8.4-10.2); Carbon Dioxide 21 mmol/L (22-30); Chloride 112 mmol/L (98-107); Glucose 116 mg/dL (74-99); Magnesium 1.8 mg/dL (1.6-2.3); Non-African American GFR(MDRD) >60 (>60 ml/min/1.73 sqM); Phosphorous 2.7 mg/dL (2.5-4.5); Potassium 3.7 mmol/L (3.5-5.1); Sodium 141 mmol/L (137-145); Total Bilirubin 0.4 mg/dL (0.2-1.3); Total Protein 5.9 g/dL (6.3-8.2)
[2016-10-03] MEDS ORDERED: VANCOMYCIN TROUGH DUE 1 EACH MISC MISCELLANE ONE (05:00)
[2016-10-03] MEDS: MAGNESIUM SULFATE-D5W PMX 1 GM in DEXTROSE/WATER 1 100ML.BAG IVPB SCH ×2 (05:56→09:27)
[2016-10-03] MEDS: PROPOFOL 500 MG in EMPTY BAG 1 BAG IV SCH ×4 (06:00→21:34)
[2016-10-03] MEDS ORDERED: POTASSIUM CHLORIDE ORAL LIQUID 40 MEQ/30 ML CUP NG-TUBE SCH (06:00)
[2016-10-03 06:06] LABS: Glucose,Whole Blood 107 mg/dL (75-99)
[2016-10-03] MEDS: VANCOMYCIN 1,000 MG in SODIUM CHLORIDE 0.9% 250 ML IVPB SCH (06:56)
[2016-10-03] MEDS: HEPARIN SODIUM,PORCINE 5,000 UNIT/ML 1 ML VIAL SQ SCH ×2 (09:27→15:48)
[2016-10-03] MEDS: GABAPENTIN 300 MG CAP PO SCH ×2 (09:28→20:39)
[2016-10-03] MEDS: levETIRAcetam IV 1,000 MG in SALINE 1 100ML.BAG IVPB SCH ×2 (09:28→20:34)
[2016-10-03] MEDS: PANTOPRAZOLE 40 MG/10 ML VIAL IV SCH (09:28)
[2016-10-03] MEDS: CHLORHEXIDINE GLUCONATE 15 ML CUP MUCOUS MEM SCH ×2 (09:28→20:34)
[2016-10-03 10:33] VITALS: BMI 18.8
--- NOTE | 2016-10-03 11:28 | PN ---
DATE OF SERVICE: 10/02/2016 INTERVAL HISTORY: Ms. Moran is a 31-year-old female with known history of heroin abuse who has been clean for the past 9 months, came to the hospital with possible heroin overdose. Patient currently unresponsive and intubated. Patient is sedation since yesterday with minimal response spontaneously. Otherwise, patient had a repeat EEG done, it showed diffuse hypoxic encephalopathy-like picture and no Seizure activity noted. Neurology and Pulmonary are following this patient. Currently maintained on mechanical ventilation. Patient is tachycardic on and off. No seizure activity noted and complete review of systems could not be obtained on the patient. Current medications include ceftriaxone, Peridex Neurontin heparin subQ, Humalog sliding scale p.r.n., Keppra IV and Narcan, Protonix IV, and vancomycin. PHYSICAL EXAMINATION: A 31-year-old female, lying in the bed, currently intubated and unresponsive to verbal and painful stimuli. Neck is supple. No JVD. HEENT: Atraumatic, normocephalic. EYES: No pallor, no icterus. Pupils reactive. Corneal reflexes intact. CVS: S1, S2 heard. No murmurs, no gallop. LUNGS: Bilateral air entry is present. Rhonchi positive. Nonlabored breathing. No crackles. Abdomen is soft. Bowel sounds are present. COMPLEX DIRECTOR: Currently unresponsive. Sluggish response to deep painful stimuli. EXTREMITIES: No edema. Pulses are palpable bilaterally. PSYCHIATRIC: Could not be assessed completely. LABORATORY DATA: WBC 13.4, hemoglobin 10.6, platelets 170. Sodium 141, potassium 3.9, chloride 110, bicarb is 19, BUN 12, creatinine 0.4. Calcium 8.5, phosphorus 1.5, AST is 68, ALT 108, albumin 3.1. CHEST X-RAY: Stable portable chest, clinical correlation and follow up until resolution is recommended. IMPRESSION: 1. Acute hypoxic encephalopathy secondary to drug overdose. 2. Acute drug intoxication in the form of Flakka. 3. Generalized seizure. 4. Non-anion gap metabolic acidosis. 5. Elevated liver enzymes, possible hepatitis, drug induced. 6. History of heroine abuse and IVDU. 7. History of anxiety. 8. Hypophosphatemia. 9. Leukocytosis, improving, due to ( ) subcutaneous. 10. Normocytic anemia, hemoglobin of 10.6. DISCUSSION AND PLAN: A 31-year-old female with known history of IVDU admitted to the hospital with acute drug overdose. Currently patient has diffuse encephalopathy, secondary to drug overdose. Patient has repeat EEG showed no seizure activity but findings consistent with hypoxic encephalopathy. Patient remains on mechanical ventilation and off sedation. Pulmonary and Neurology are following the patient. Prognosis is guarded. Continue with the supportive management and mechanical ventilation. Prognosis is guarded. Further recommendations based on clinical course. MTDD
[2016-10-03] MEDS: METOPROLOL TARTRATE 5 MG/5 ML VIAL IVP SCH ×3 (11:39→18:39)
[2016-10-03 11:44] LABS: Glucose,Whole Blood 99 mg/dL (75-99)
--- NOTE | 2016-10-03 15:38 | P.PN ---
Subjective Principal diagnosis: Acute respiratory failure secondary to acute drug intoxication. 31-year-old female patient was brought into the emergency department after being found unresponsive suspecting a drug overdose. This patient is a long- term heroin abuser. At one point she was clean for a total of 9 months and she was using some subaxone. Apparently, she is back and doing drugs along with her . Yesterday, she was last seen doing drugs and her mother's in-laws house accompanied by her . The patient and her weren't and bedroom in the same house a different level when the [id number] went to check on them and they patient was found to be completely unresponsive. The himself was under the influence of the drug. The exact downtime is not known and it is estimated to be more than 30 minutes at least. The father-in- law on another brother from the same mother started CPR on the patient. EMS was called to the scene. The patient was given a total of 8 mg of Narcan with some response however they overall response was suboptimal. In the emergency department, the patient was not following any commands no she was responding to deep painful stimuli. At that point the patient was intubated and started on mechanical ventilation. At that she came into the intensive care unit the patient started doing some activity which was essentially twitching and this was perceived to be some agitation by the nursing staff and she was placed on Diprivan overnight. This morning, during my loan auditor rounds, to this patient off Diprivan and immediately it was noted that the patient was having rapid jerks somewhat myoclonic and the twitching was on her face both upper extremities and lower extremities. This was typical of seizure, probably tonic- clonic with some myoclonic features and based on that she was given a total of 100 mg of Diprivan bolus and started back on Diprivan drip and started on IV Keppra 1 g twice a day. EEG was ordered on a stat basis. The patient was on a mechanical ventilator on assist control mode and the chest x-ray from this morning showed no acute abnormalities. CAT scan of the brain that was done in the emergency department was also negative. Note that her urine drug screen was negative and after an extensive search and interrogation of the family will follow the patient has used Flakka , which is a [place] planned that had been melted and shots into her vein. This is an alpha -PVP drug that can cause agitation, delirium, paranoia, aggression, and has also been linked to , malignant hyperthermia, acute myocardial infarction. Clinically, the patient remains completely unresponsive. In fact she is on Diprivan for now and the jerking activity has subsided. She is hemodynamically stable. She is afebrile. Pupils are quite dilated at 6-7 mm in size. Reflexes are within normal in all 4 extremities laterally. On 09/30/2016 the patient is being seen in follow-up. As mentioned yesterday, the patient is a drug overdose case and the patient has signs of severe hypoxic encephalopathy. She was having seizure activity yesterday and based on that I put her on Diprivan and start on Keppra. Follow-up EEG was done and it showed evidence of severe widespread diffuse disturbance in the cerebral function. There was no evidence of any focal lateralizing or epileptiform activities. The patient as such was kept on the Diprivan and Keppra overnight and this morning she was taken off the Diprivan and she was given a holiday. The patient remained completely unresponsive. No junk activity was noted. The patient is unresponsive to any deep painful stimuli. She remains deeply comatose. She is still on IV Keppra for now 1 g every 12 hours. Neurology is on the case and strongly suspecting severe hypoxic/anoxic encephalopathy. Meanwhile, we are considering the rest of the supportive care. The patient remains on a mechanical ventilator. Chest x-ray today is clear. Blood gases were noted. The patient is oxygenating well. The patient will be started on tube feeds today. The patient did have a spike of temperature and she'll be cultured including sputum and blood and urine and she was started on empiric antibiotic coverage with IV Zosyn. On 10/01/2016 the patient is being seen in follow-up. As mentioned, yesterday morning the patient was taken off sedation. The prevent was discontinued. She did not have any seizure activity noted. On the. Neurologic examination the patient was noted to be still unresponsive. This morning, she had some minimal response to deep painful stimuli. She is occasionally breathing above the mechanical ventilator. She has a good cough reflex. Pupils are round 4 mm in size and there reactive to light. There is no nystagmus. No Babinski. No clonus. DTRs are diminished and +1 in upper and lower extremities. No abnormal jerky body movements. The patient remains on Keppra. Fever has been treated and the patient is currently afebrile. IV Rocephin was started as an empiric antibiotic coverage. The patient is on a mechanical ventilator and the vent setting currently is an assist-control of 16, tidal volume 400, FiO2 of 30 % and a PEEP of 5. Chest x-rayDone today is clear and the patient is currently on IV Rocephin as a empiric antibiotic coverage. On 10/02/2016 the patient is being seen in follow-up. The patient is still off any form of sedation. Unfortunately the neurologic recovery has been minimal. The patient remains comatose. She does withdraw to deep painful stimuli. She does not open her eyes spontaneously. She does not reveal any seizure activity. At times she gets tachycardic and this septal spontaneously. She remains on a mechanical ventilator. No fever or chills. No other significant events overnight. EEG had shown diffuse slowing with a background of 4 Hz activity and there is no evidence of any seizure activity noted. Prognosis remains very guarded. The patient is still on Keppra and the antiepileptic medication levels are being managed by neurology. 10/03/2016, patient remains on mechanical ventilation, unfortunately she has no neurologic recovery so far whatsoever. She remains comatose, she withdraws to deep painful stimuli, does not move her eyes spontaneously, remains intermittently tachycardic remains on mechanical ventilation, and I had a long discussion with the at bedside regarding her overall picture. However he has to discuss with the neurologist her overall neurological picture. Labs were reviewed, ABG showed a pO2 of 132 pCO2 of 3 to pH of 7.44 CBC is normal. Hemoglobin is 10.1 electrolytes and renal profile are normal. Objective - Vital Signs Vital signs: Vital Signs Temp 98.1 F 10/03/16 12:00 Pulse 104 H 10/03/16 14:00 Resp 24 10/03/16 14:00 BP 106/78 10/03/16 14:00 Pulse Ox 100 10/03/16 14:00 Intake & Output 10/02/16 10/03/16 10/03/16 18:59 06:59 18:59 Intake Total 1140 2136.649 1023.846 Output Total 1050 1025 785 Balance 90 1111.649 238.846 Weight 54.4 kg 54.4 kg Intake: IV 600 600 400 normal saline 600 600 400 Intake, IV Titration 726.649 173.846 Amount Magnesium Sulfate-D5w Pmx 100 100 1 gm In Dextrose/Water 1 100ml.bag @ 100 mls/hr IVPB Q1H [facility] Rx#: [id number] Propofol 500 mg In Empty 26.649 23.846 Bag 1 bag @ Titrate IV . Q0M [facility] Rx#:[id number] Vancomycin 1,000 mg In 500 Sodium Chloride 0.9% 250 ml @ 125 mls/hr IVPB Q8H [facility] Rx#:[id number] cefTRIAXone 1,000 mg In 50 Sodium Chloride 0.9% 50 ml @ 100 mls/hr IVPB Q24HR [facility] Rx#:[id number] levETIRAcetam IV 1,000 mg 100 In Saline 1 100ml.bag @ 400 mls/hr IVPB Q12HR [facility] Rx#:[id number] Tube Feeding 540 720 450 Other 90 Output: Urine 1050 1025 785 Other: Voiding Method Indwelling Catheter Indwelling Catheter Indwelling Catheter # Bowel Movements 0 - Exam Patient is calm and comfortable and intubated on mechanical ventilator.Head exam was generally normal. There was no scleral icterus or corneal arcus. Mucous membranes were moist. Neck was supple and without jugular venous distension, thyromegaly, or carotid bruits. Carotids were easily palpable bilaterally. There was no adenopathy. Orogastric and orotracheal tube are both in place.Cardiac exam revealed the PMI to be normally situated and sized. The rhythm was regular and no extrasystoles were noted during several minutes of auscultation. The first and second heart sounds were normal and physiologic splitting of the second heart sound was noted. There were no murmurs, rubs, clicks, or gallops.Lungs were clear to auscultation and percussion, and with normal diaphragmatic excursion. No wheezes or rales were noted. Abdominal exam revealed normal bowel sounds. The abdomen was soft, non-tender, and without masses, organomegaly, or appreciable enlargement of the abdominal aorta.Examination of the extremities revealed easily palpable radial, femoral and pedal pulses. There was no cyanosis, clubbing or edema. Neurologically, the patient has minimal sluggish response to deep painful stimuli that was applied to her chest and lower extremities bilaterally. Reflexes are +1, no rigidity, no Babinski, no clonus, no facial asymmetry, she has a good cough and gag reflex and a gag reflex, pupils around 4 mm in size and they are reactive to light, no nystagmus, she is at times breathing above the mechanical ventilator. As such, the patient remains deeply comatose. - Labs CBC & Chem 7: 10/03/16 04:23 10/03/16 04:23 Labs: Abnormal Lab Results - Last 24 Hours (Table) 10/02/16 10/03/16 10/03/16 Range/Units 18:56 00:00 04:20 RBC (3.80-5.40) m/uL Hgb (11.4-16.0) gm/dL Hct (34.0-46.0) % ABG pCO2 32 L (35-45) mmHg ABG pO2 132 H (83-108) mmHg ABG O2 Saturation 99.1 H (94-97) % Chloride (98-107) mmol/L Carbon Dioxide (22-30) mmol/L Creatinine (0.52-1.04) mg/dL Glucose (74-99) mg/dL POC Glucose (mg/dL) 116 H 107 H (75-99) mg/dL AST (14-36) U/L ALT (9-52) U/L Total Protein (6.3-8.2) g/dL Albumin (3.5-5.0) g/dL 10/03/16 10/03/16 10/03/16 Range/Units 04:23 04:23 06:05 RBC 3.43 L (3.80-5.40) m/uL Hgb 10.1 L (11.4-16.0) gm/dL Hct 31.4 L (34.0-46.0) % ABG pCO2 (35-45) mmHg ABG pO2 (83-108) mmHg ABG O2 Saturation (94-97) % Chloride 112 H (98-107) mmol/L Carbon Dioxide 21 L (22-30) mmol/L Creatinine 0.41 L (0.52-1.04) mg/dL Glucose 116 H (74-99) mg/dL POC Glucose (mg/dL) 107 H (75-99) mg/dL AST 56 H (14-36) U/L ALT 95 H (9-52) U/L Total Protein 5.9 L (6.3-8.2) g/dL Albumin 2.9 L (3.5-5.0) g/dL Microbiology - Last 24 Hours (Table) 09/30/16 04:51 Blood Culture Gram Stain - Final Blood Blood Culture - Final Micrococcus species 09/30/16 04:36 Blood Culture - Preliminary Blood No Growth after 72 hours Assessment and Plan Plan: 1 acute drug intoxication. The patient has injected herself with Flekka, [place] plant, and this is known to be a an alpha- PVP, a synthetic stimulant of the cathinon-class, a drug is associated with that his suicides and drug overdoses. 2 hypoxic encephalopathy secondary to drug overdose. The patient is currently Off sedation and she is deeply comatose. Neurology is on the case and will do agree. Neurologic examinations. EEG showed diffuse slowing without evidence of any seizure activity. The patient remains on Keppra. Repeat CAT scan of the brain showed no acute abnormalities. On 10/01/2016, the patient remains deeply comatose. No obvious seizure activity noted. Her latest EEG has shown diffuse slowing and the patient remains on Keppra. The patient has signs of severe hypoxic/anoxic encephalopathy following her acute drug intoxication and cardiopulmonary arrest. A follow-up EEG will be done today. We'll monitor neurological outcome. Intensive care unit. The patient me will be kept intubated and mechanical ventilator. The rest of the supportive care will be also continued. On 10/02/2016, the patient remains comatose without much of an improvement over the past 24 hours. The EEG had shown diffuse slowing without any improvement compared to the previous EKG findings. Prognosis remains extremely guarded. On 10/03/2016, no significant improvement noted, and the patient is the same as noted above. 3 generalized seizures, currently inactive The EEG performed yesterday while the patient on Diprivan showed no seizure activity and there was diffuse slowing. A follow-up EEG needs to be done later stage. Meanwhile the patient was taken off Diprivan and she is currently on IV Keppra. 4 long history of IV drug use, involving heroin 5 leukocytosis 6 non-anion gap metabolic acidosis 7 negative urine drug screen 8 new-onset fever, rule out infection, rule out neurogenic fever. Patient is suffering from severe hypoxic encephalopathy. She is deeply comatose. EEG is showing diffuse slowing without any epileptiform foci. We are still continuing the supportive care at this point. We'll continue vent support. Continue the tube feeds. Empiric antibiotics. Avoid any hyperthermia. Will continue monitoring the neurological outcome over the next few days and have further discussion with the family regarding goals of treatment. I do not foresee any immediate recovery in terms of her neurological functions and prognosis remains very guarded. This has been discussed with the family. There is a critically care evaluation 31 minutes. Time with Patient: Greater than 30 Time with Patient: Greater than 30
[2016-10-03] MEDS: VANCOMYCIN 1,250 MG in SODIUM CHLORIDE 0.9% 250 ML IVPB SCH (15:48)
--- NOTE | 2016-10-03 19:17 | P.PN ---
Subjective This patient is a 31-year-old right-handed white female who was initially found unresponsive at home with a drug overdose. Family provided history stating the patient had used Flakka which is a [place] plant which was apparently injected into her vein. This drug is associated with agitation, delirium, paranoia, and aggression. Patient was brought into the emergency room on initial evaluation and was noted to have seizure-like activity. She was started on Keppra intubated and transferred to the intensive care unit. Initially she was placed on Diprivan for sedation. She has been off of all sedation in Diprivan since 12 noon yesterday. She has not shown much improvement in her neurological status today despite being off of all sedation. She has had no further seizure- like activity noted by the ICU nursing staff. Keppra blood level is pending at this time. The patient remains obtunded. She does withdraw to painful stimuli. She does not open eyes spontaneously. She has had multiple CT scans of the brain the last CAT scan failed to reveal any evidence of acute stroke or hemorrhage. The patient had a follow-up EEG today in the ICU for comparison reasons. Her previous EEG was done on 09/29/2016. Her EEG today was reviewed and continues to reveal evidence of severe slowing with a background of 4 Hz. There is no evidence of any epileptiform discharges. EEG shows no significant improvement from her previous EEG and is consistent with a severe diffuse hypoxic encephalopathy secondary to drug overdose. Patient's family has been updated on her overall neurological status by pulmonary medicine. Her overall prognosis at this time remains very guarded. As noted she has remained off of all sedation since 12 noon yesterday and is not showing any signs of awakening at this time. She does have some pupillary responses and corneal responses intact. She does withdraw to painful stimuli overall 4 extremities. Neurological exam in the ICU today shows slightly more brisk pupillary response. She still remains somewhat obtunded on the ventilator. As noted her repeat EEG done yesterday failed to reveal any significant improvement in her background activity. Her Keppra blood level came back today and is 13.3. No evidence of any seizure activity. Patient does appear to more stiff on examination today as compared to yesterday. It is unclear whether this may be due to rigidity. We will get a repeat computed tomography scan of the brain tonight for further assessment. Case was discussed today at length with the patient's mother and at bedside. All of their questions were answered. They were updated on her very guarded condition neurologically at this time. We will update them tomorrow after a repeat EEG is done in terms of long-term management. Patient was restarted on sedation today due to tachycardia and agitation. We will continue to follow this patient closely in the intensive care unit. Overall prognosis at this time remains very guarded. Objective - Vital Signs Vital signs: Vital Signs Temp 98.4 F 10/03/16 16:00 Pulse 108 H 10/03/16 17:00 Resp 28 H 10/03/16 17:00 BP 133/77 10/03/16 17:00 Pulse Ox 100 10/03/16 17:00 Intake & Output 10/02/16 10/03/16 10/03/16 18:59 06:59 18:59 Intake Total 1140 2136.649 1353.846 Output Total 1050 1025 995 Balance 90 1111.649 358.846 Weight 54.4 kg 54.4 kg Intake: IV 600 600 550 normal saline 600 600 550 Intake, IV Titration 726.649 173.846 Amount Magnesium Sulfate-D5w Pmx 100 100 1 gm In Dextrose/Water 1 100ml.bag @ 100 mls/hr IVPB Q1H [facility] Rx#: [id number] Propofol 500 mg In Empty 26.649 23.846 Bag 1 bag @ Titrate IV . Q0M [facility] Rx#:[id number] Vancomycin 1,000 mg In 500 Sodium Chloride 0.9% 250 ml @ 125 mls/hr IVPB Q8H [facility] Rx#:[id number] cefTRIAXone 1,000 mg In 50 Sodium Chloride 0.9% 50 ml @ 100 mls/hr IVPB Q24HR [facility] Rx#:[id number] levETIRAcetam IV 1,000 mg 100 In Saline 1 100ml.bag @ 400 mls/hr IVPB Q12HR [facility] Rx#:[id number] Tube Feeding 540 720 630 Other 90 Output: Urine 1050 1025 995 Other: Voiding Method Indwelling Catheter Indwelling Catheter Indwelling Catheter # Bowel Movements 0 - Exam Physical examination: PHYSICAL EXAMINATION: Patient remains intubated on the ventilator in the ICU. She has no spontaneous movements. She arouses to sternal rub. VITAL SIGNS: Blood pressure is [133/77]. Heart rate is [108]. Respiration is [28 ]. Temperature is [98.4]. HEENT: Head is atraumatic, neck is supple, there were no carotid bruits. CHEST: Lungs are clear to auscultation and percussion. CARDIAC: S1, S2 normal rate and rhythm. There is no murmur. ABDOMEN: Soft and nontender. Bowel sounds are present. EXTREMITIES: There is no pedal edema. Peripheral pulses are present. Neurological examination: Patient is intubated on the ventilator in the intensive care unit. She remains off of all sedation for over 24 hours. She arouses minimally to sternal rub. She does withdraw to painful stimuli overall 4 extremities. Pupils slightly more reactive to light and corneal response today Deep tendon reflexes are hypoactive 1+. No Babinski response elicited. - Labs CBC & Chem 7: 10/03/16 04:23 10/03/16 04:23 Labs: Abnormal Lab Results - Last 24 Hours (Table) 10/02/16 10/03/16 10/03/16 Range/Units 18:56 00:00 04:20 RBC (3.80-5.40) m/uL Hgb (11.4-16.0) gm/dL Hct (34.0-46.0) % ABG pCO2 32 L (35-45) mmHg ABG pO2 132 H (83-108) mmHg ABG O2 Saturation 99.1 H (94-97) % Chloride (98-107) mmol/L Carbon Dioxide (22-30) mmol/L Creatinine (0.52-1.04) mg/dL Glucose (74-99) mg/dL POC Glucose (mg/dL) 116 H 107 H (75-99) mg/dL AST (14-36) U/L ALT (9-52) U/L Total Protein (6.3-8.2) g/dL Albumin (3.5-5.0) g/dL 10/03/16 10/03/16 10/03/16 Range/Units 04:23 04:23 06:05 RBC 3.43 L (3.80-5.40) m/uL Hgb 10.1 L (11.4-16.0) gm/dL Hct 31.4 L (34.0-46.0) % ABG pCO2 (35-45) mmHg ABG pO2 (83-108) mmHg ABG O2 Saturation (94-97) % Chloride 112 H (98-107) mmol/L Carbon Dioxide 21 L (22-30) mmol/L Creatinine 0.41 L (0.52-1.04) mg/dL Glucose 116 H (74-99) mg/dL POC Glucose (mg/dL) 107 H (75-99) mg/dL AST 56 H (14-36) U/L ALT 95 H (9-52) U/L Total Protein 5.9 L (6.3-8.2) g/dL Albumin 2.9 L (3.5-5.0) g/dL Microbiology - Last 24 Hours (Table) 09/30/16 04:51 Blood Culture Gram Stain - Final Blood Blood Culture - Final Micrococcus species 09/30/16 04:36 Blood Culture - Preliminary Blood No Growth after 72 hours Assessment and Plan (1) Acute metabolic encephalopathy Status: Acute Code(s): G93.41 - METABOLIC ENCEPHALOPATHY (2) Heroin overdose Status: Acute Code(s): T40.1X1A - POISONING BY HEROIN, ACCIDENTAL ( UNINTENTIONAL), INIT ENCNTR Plan: This patient is a 31-year-old female who remains intubated on the ventilator and is unresponsive. She was admitted with acute drug overdose and severe hypoxic encephalopathy. She is undergone 2 EEG studies both of which are unchanging show severe slowing of brain activity. Today she is showing signs of increased stiffness and rigidity. We will get a repeat computed tomography scan of the brain today to rule out cerebral edema. We will plan to have a repeat EEG done tomorrow for further evaluation. Her Keppra level did come back in the therapeutic range at 13.3. We have discussed her neurological findings today in detail with the patient's and mother at bedside. All their questions were answered. They're aware of her very guarded condition. She has been restarted on some Diprivan due to tachycardia and agitation earlier today. Her overall prognosis at this time remains very guarded. Patient remains in the intensive care unit in a critical state.
--- NOTE | 2016-10-03 22:27 | CT ---
EXAMINATION TYPE: CT brain wo con DATE OF EXAM: 10/03/2016 10:18 PM COMPARISON: 09/30/2016 HISTORY: Pt unresponsive. Heroin overdose. CT DLP: 905.4 mGycm Automated exposure control for dose reduction was used. FINDINGS: Ventricles appear small. There is slight loss of the normal jimenez-white matter differentiation. There appears to be effacement of the sulci. There is mucosal thickening in the sphenoid and posterior ethm oid sinus on the right side. The calvarium is intact. Fourth ventricle appears normal. IMPRESSION: There is evidence of cerebral edema that appears worse than last CT scan of 09/30/2016. No hemorrhage. This may indicate increased intracranial pressure. Right side sphenoid and ethmoid sinusitis.
[2016-10-04] MEDS: HEPARIN SODIUM,PORCINE 5,000 UNIT/ML 1 ML VIAL SQ SCH ×2 (00:13→07:56)
[2016-10-04] MEDS: VANCOMYCIN 1,250 MG in SODIUM CHLORIDE 0.9% 250 ML IVPB SCH ×2 (00:13→07:57)
[2016-10-04] MEDS: INSULIN LISPRO (humaLOG) 300 UNIT/3 ML VIAL SQ SCH ×2 (00:21→06:19)
[2016-10-04 00:22] LABS: Glucose,Whole Blood 110 mg/dL (75-99)
[2016-10-04] MEDS: METOPROLOL TARTRATE 5 MG/5 ML VIAL IVP SCH ×2 (00:46→07:07)
[2016-10-04] MEDS: PROPOFOL 500 MG in EMPTY BAG 1 BAG IV SCH (00:53)
[2016-10-04 02:17] VITALS: TEMP 99.6
[2016-10-04] MEDS ORDERED: DEXAMETHASONE SOD PHOSPHATE 10 MG/ML 1 ML VIAL IV STA (02:22)
[2016-10-04 05:11] LABS: Basophils # (A) 0.1 k/uL (0-0.2); Basophils % (A) 1 %; CH 30.3; CHCM 33.4; Eosinophils # (A) 0.3 k/uL (0-0.7); Eosinophils % (A) 4 %; HCT 31.4 % (34.0-46.0); HDW 2.57; HGB 10.5 gm/dL (11.4-16.0); Luc # (Auto) 0.15; Luc % (Auto) 2; Lymphocytes % (A) 11 %; MCH 30.4 pg (25.0-35.0); MCHC 33.3 g/dL (31.0-37.0); MCV 91.2 fL (80.0-100.0); Mean Platelet Volume 9.3; Monocytes # (A) 0.5 k/uL (0-1.0); Monocytes % (A) 5 %; Neutrophils # (A) 7.4 k/uL (1.3-7.7); Neutrophils % (A) 78 %; RBC 3.45 m/uL (3.80-5.40); RDW 12.4 % (11.5-15.5); WBC 9.4 k/uL (3.8-10.6)
[2016-10-04 05:40] LABS: ALT 105 U/L (9-52); AST 73 U/L (14-36); Alkaline Phosphatase 110 U/L (38-126); Anion Gap 12 mmol/L; Blood Urea Nitrogen 17 mg/dL (7-17); Calcium 8.9 mg/dL (8.4-10.2); Carbon Dioxide 20 mmol/L (22-30); Chloride 109 mmol/L (98-107); Glucose 104 mg/dL (74-99); Magnesium 1.8 mg/dL (1.6-2.3); Non-African American GFR(MDRD) >60 (>60 ml/min/1.73 sqM); Potassium 4.2 mmol/L (3.5-5.1); Sodium 141 mmol/L (137-145); Total Bilirubin 0.4 mg/dL (0.2-1.3); Total Protein 6.3 g/dL (6.3-8.2)
[2016-10-04] MEDS ORDERED: Magnesium Replacement Protocol 1 EACH MISC MISCELLANE PRN (05:59)
[2016-10-04] MEDS ORDERED: MAGNESIUM SULFATE-D5W PMX 1 GM in DEXTROSE/WATER 1 100ML.BAG IVPB SCH (06:00)
[2016-10-04 06:11] LABS: Glucose,Whole Blood 123 mg/dL (75-99)
[2016-10-04] MEDS ORDERED: DEXAMETHASONE SOD PHOSPHATE 4 MG/ML 1 ML VIAL IV SCH ×2 (06:30→08:00)
--- NOTE | 2016-10-04 06:58 | XR ---
EXAMINATION TYPE: XR chest 1V portable DATE OF EXAM: 10/04/2016 6:52 AM CLINICAL HISTORY: Difficulty breathing progress study. TECHNIQUE: Single AP portable upright view of the chest is obtained. COMPARISON: Chest x-ray from 2 days earlier. FINDINGS: An endotracheal tube and orogastric tube are stable in appearance. Lungs no new suspicious focal airspace opacity, pleural effusion, or pneumothorax is seen bilaterally. Some improved aeratio n left lung base is present. Cardiac silhouette size is stable and upper limits of normal. Osseous st ructures are intact. IMPRESSION: Resolving left basilar infiltrate and/or atelectasis, no new infiltrate is seen.
[2016-10-04 07:41] LABS: ABG Base Excess -1.2 mmol/L; ABG HCO3 23 mmol/L (21-25); ABG Oxygen Saturation 97.7 % (94-97); ABG PCO2 37 mmHg (35-45); ABG PH 7.41 (7.35-7.45); ABG PO2 98 mmHg (83-108); ABG TCO2 24 mmol/L (19-24)
--- NOTE | 2016-10-04 07:41 | PN ---
DATE OF SERVICE: 10/03/2016 INTERVAL HISTORY: Ms. Moran is a 31-year-old female with known history of heroin abuse who has been clean for the past 9 months came to the hospital with a possible heroin overdose. Currently the patient is unresponsive and patient does have acute hypoxic encephalopathy due to a drug overdose and is currently maintained on mechanical ventilation. EEG done twice, showed diffuse hypoxic encephalopathy-like picture and no seizure activity was noted. Patient is currently being treated with supportive management with mechanical ventilation and tube feedings. The patient is off sedation since 2 days with minimal response. CURRENT MEDICATIONS: Reviewed. PHYSICAL EXAMINATION: A 31-year-old female, lying in the bed, currently sedated and intubated. HEENT: Atraumatic, normocephalic. Neck is supple. No JVD. CVS: S1 and S2 heard. No murmurs, no gallop. LUNGS: Bilateral air entry is present. Diminished breath sounds basally. Nonlabored breathing. Currently, on mechanical ventilation. No crackles. ABDOMEN: Soft. Bowel sounds are present. 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 Pupils are slightly reactive. EXTREMITIES: No edema. Pulses palpable bilaterally. PSYCHIATRIC: Could not be assessed completely. LABORATORY DATA: WBC 9.1, hemoglobin 10.1, platelets 192. ABG showed pH of 7.44, pCO2 of 32, pO2 of 132, bicarb is 22. Sodium 141, potassium 3.7, chloride 112, bicarb is 21. BUN 12, creatinine 0.41. Calcium 8.5, magnesium 2.7, albumin 2.9. Vancomycin trough is 10.8. IMPRESSION: 1. Acute hypoxic encephalopathy secondary to drug overdose with minimal improvement in her clinical status. 2. Acute hypoxic respiratory failure secondary to drug overdose and acute drug intoxication in the form of Flakka. 3. Non-anion metabolic acidosis. 4. Elevated liver enzymes, possible hepatitis, drug induced. 5. History of heroin abuse and IVDU. 6. History of anxiety. 7. Hypophosphatemia. 8. Leukocytosis. 9. Negative urine drug screen. 10. Fever, T-max 99.6, rule out any infection. 11. Blood culture showed micrococcus species. 12. Normocytic anemia with hemoglobin 10.6. DISCUSSION AND PLAN: A 31-year-old female admitted to the hospital with drug intoxication in the form of Flakka. UDS is negative. Patient is currently having diffuse hypoxic and metabolic encephalopathy with no clinical improvement since last few days. EEG showed diffuse slowing and currently patient remains on Keppra. Neurology and Pulmonary are following this patient. Continue the mechanical ventilation support and tube feedings and empiric antibiotics. Prognosis is poor. Discussed with the family in detail and follow up closely.
[2016-10-04] MEDS: levETIRAcetam IV 1,000 MG in SALINE 1 100ML.BAG IVPB SCH (07:57)
[2016-10-04] MEDS: CHLORHEXIDINE GLUCONATE 15 ML CUP MUCOUS MEM SCH (07:57)
[2016-10-04] MEDS: GABAPENTIN 300 MG CAP PO SCH (07:57)
[2016-10-04] MEDS: PANTOPRAZOLE 40 MG/10 ML VIAL IV SCH (07:57)
--- NOTE | 2016-10-04 09:26 | P.PN ---
Subjective This patient is a 31-year-old right-handed white female who was initially found unresponsive at home with a drug overdose. Family provided history stating the patient had used Flakka which is a [place] plant which was apparently injected into her vein. This drug is associated with agitation, delirium, paranoia, and aggression. Patient was brought into the emergency room on initial evaluation and was noted to have seizure-like activity. She was started on Keppra intubated and transferred to the intensive care unit. Initially she was placed on Diprivan for sedation. She has been off of all sedation in Diprivan since 12 noon yesterday. She has not shown much improvement in her neurological status today despite being off of all sedation. She has had no further seizure- like activity noted by the ICU nursing staff. Keppra blood level is pending at this time. The patient remains obtunded. She does withdraw to painful stimuli. She does not open eyes spontaneously. She has had multiple CT scans of the brain the last CAT scan failed to reveal any evidence of acute stroke or hemorrhage. The patient had a follow-up EEG today in the ICU for comparison reasons. Her previous EEG was done on 09/29/2016. Her EEG today was reviewed and continues to reveal evidence of severe slowing with a background of 4 Hz. There is no evidence of any epileptiform discharges. EEG shows no significant improvement from her previous EEG and is consistent with a severe diffuse hypoxic encephalopathy secondary to drug overdose. Patient's family has been updated on her overall neurological status by pulmonary medicine. Her overall prognosis at this time remains very guarded. As noted she has remained off of all sedation since 12 noon yesterday and is not showing any signs of awakening at this time. She does have some pupillary responses and corneal responses intact. She does withdraw to painful stimuli overall 4 extremities. Neurological exam in the ICU today shows slightly more brisk pupillary response. She still remains somewhat obtunded on the ventilator. As noted her repeat EEG done yesterday failed to reveal any significant improvement in her background activity. Her Keppra blood level came back today and is 13.3. No evidence of any seizure activity. Patient does appear to more stiff on examination today as compared to yesterday. It is unclear whether this may be due to rigidity. We will get a repeat computed tomography scan of the brain tonight for further assessment. Case was discussed today at length with the patient's mother and at bedside. All of their questions were answered. They were updated on her very guarded condition neurologically at this time. We will update them today after a repeat EEG is done in terms of long-term management. Patient was restarted on sedation today due to tachycardia and agitation. Results of the computed tomography scan of the brain were reviewed yesterday and does reveal evidence of cerebral edema which appears slightly worse compared to her previous CAT scan done on 09/30/2016. There is no evidence of intracerebral hemorrhage. This finding in suggest possibility of increased intracranial pressure. We did discuss the CAT scan findings with the ICU nurse early this morning at 2 AM. We suggested that she be started immediately on IV Decadron. We are also recommending that the family consider transfer of this patient to the neurosurgery intensive care unit at [facility]. Pulmonary medicine was notified as well of the CAT scan results. They recommend that this be further evaluated this morning for possible transfer depending on the wishes of the family. We will continue to follow this patient closely in the intensive care unit. Overall prognosis at this time remains very guarded. Objective - Vital Signs Vital signs: Vital Signs Temp 99.6 F 10/04/16 04:00 Pulse 72 10/04/16 07:00 Resp 16 10/04/16 07:00 BP 120/61 10/04/16 07:00 Pulse Ox 100 10/04/16 07:00 Intake & Output 10/03/16 10/04/16 10/04/16 18:59 06:59 18:59 Intake Total 2977.478 7528.228 95 Output Total 1105 768 35 Balance 377.548 966.228 60 Weight 54.4 kg 57.9 kg Intake: IV 600 600 50 normal saline 600 600 50 Intake, IV Titration 207.548 339.228 Amount Magnesium Sulfate-D5w Pmx 100 1 gm In Dextrose/Water 1 100ml.bag @ 100 mls/hr IVPB Q1H [facility] Rx#: [id number] Propofol 500 mg In Empty 57.548 89.228 Bag 1 bag @ Titrate IV . Q0M [facility] Rx#:[id number] Vancomycin 1,250 mg In 250 Sodium Chloride 0.9% 250 ml @ 125 mls/hr IVPB Q8HR [facility] Rx#:[id number] cefTRIAXone 1,000 mg In 50 Sodium Chloride 0.9% 50 ml @ 100 mls/hr IVPB Q24HR [facility] Rx#:[id number] Tube Feeding 675 675 45 Other 120 Output: Urine 1105 768 35 Other: Voiding Method Indwelling Catheter Indwelling Catheter - Exam Physical examination: PHYSICAL EXAMINATION: Patient remains intubated on the ventilator in the ICU. She has no spontaneous movements. She arouses to sternal rub. VITAL SIGNS: Blood pressure is [125/61]. Heart rate is [72]. Respiration is [16] . Temperature is [99.0]. HEENT: Head is atraumatic, neck is supple, there were no carotid bruits. CHEST: Lungs are clear to auscultation and percussion. CARDIAC: S1, S2 normal rate and rhythm. There is no murmur. ABDOMEN: Soft and nontender. Bowel sounds are present. EXTREMITIES: There is no pedal edema. Peripheral pulses are present. Neurological examination: Patient is intubated on the ventilator in the intensive care unit. She arouses minimally to sternal rub. She does withdraw to painful stimuli overall 4 extremities. There is slight increase in muscle tone both upper and lower extremities. Pupils slightly more reactive to light and corneal response today Deep tendon reflexes are hypoactive 1+. No Babinski response elicited. - Labs CBC & Chem 7: 10/04/16 04:19 10/04/16 04:15 Labs: Abnormal Lab Results - Last 24 Hours (Table) 10/04/16 10/04/16 10/04/16 Range/Units 00:21 04:15 04:19 RBC 3.45 L (3.80-5.40) m/uL Hgb 10.5 L (11.4-16.0) gm/dL Hct 31.4 L (34.0-46.0) % ABG O2 Saturation (94-97) % Chloride 109 H (98-107) mmol/L Carbon Dioxide 20 L (22-30) mmol/L Creatinine 0.40 L (0.52-1.04) mg/dL Glucose 104 H (74-99) mg/dL POC Glucose (mg/dL) 110 H (75-99) mg/dL AST 73 H (14-36) U/L ALT 105 H (9-52) U/L Albumin 3.2 L (3.5-5.0) g/dL 10/04/16 10/04/16 Range/Units 06:06 07:22 RBC (3.80-5.40) m/uL Hgb (11.4-16.0) gm/dL Hct (34.0-46.0) % ABG O2 Saturation 97.7 H (94-97) % Chloride (98-107) mmol/L Carbon Dioxide (22-30) mmol/L Creatinine (0.52-1.04) mg/dL Glucose (74-99) mg/dL POC Glucose (mg/dL) 123 H (75-99) mg/dL AST (14-36) U/L ALT (9-52) U/L Albumin (3.5-5.0) g/dL Microbiology - Last 24 Hours (Table) 09/30/16 04:36 Blood Culture - Preliminary Blood No Growth after 96 hours 09/30/16 04:51 Blood Culture Gram Stain - Final Blood Blood Culture - Final Micrococcus species Assessment and Plan (1) Acute metabolic encephalopathy Status: Acute Code(s): G93.41 - METABOLIC ENCEPHALOPATHY (2) Heroin overdose Status: Acute Code(s): T40.1X1A - POISONING BY HEROIN, ACCIDENTAL ( UNINTENTIONAL), INIT ENCNTR Plan: This patient is a 31-year-old female initially admitted to the intensive care unit with acute drug overdose and possible anoxic encephalopathy. She has undergone multiple CT scans and EEG studies while in the ICU. She was sent for a computed tomography scan of the brain yesterday evening for further follow- up. CAT scan did reveal evidence of increase cerebral edema. She was started on IV Decadron this morning for further management. There is evidence of possible increase intracranial pressure and for this reason may explain her worsening neurological status. We did recommend to the ICU nurse this morning to consider transfer this patient to the neurosurgery ICU at [facility]. This is to be discussed this morning with the family and the decision made as to further management. She is to continue on IV Decadron at this time. Her overall prognosis at this time remains very guarded. We will consider repeat EEG this morning depending on the family decision. Case was discussed this morning in detail with the ICU nurse. She did inform pulmonary medicine who recommends further follow up this morning in terms of possible transfer to neurosurgery ICU at [facility]. Her overall prognosis at this time remains very guarded.
--- NOTE | 2016-10-04 10:23 | P.DS ---
Providers Date of admission: 09/29/16 03:15 Attending physician: Rayna Torres Consults: 09/29/16 10:52 Consult Physician Stat Consulting Provider: Elias Tucker Consult Reason/Comments: seizure, hypoxic enceph Do you want consulting provider notified?: Yes Primary care physician: Stated None Hospital Course: This is a 31-year-old female with history of heroin abuse comes in the hospital after being found nonreactive and pulseless on the field. Patient apparently was locked in a room with her . Estimated down time was over 20 minutes patient was triaged to the hospital was intubated. Initial evaluation, patient was nonresponsive, on the ventilator and not breathing over on sedation medication. Patient's however pupils were reactive to light, and corneal reflexes were present. Patient has random movements of all 4 extremities however does not follow commands or retracting to pain. Patient initially was sedated with propofol which was turned off. Patient had multiple CT scans of the brain done last computed tomography scan showed some cerebral edema with no signs of herniation. There is suspected flakka IV use as it was not really seen on the urine drug screen initial eval. Neurology has evaluated the patient multiple EEGs were done which showed encephalopathy however no underlying seizure activity was noted. On the day of transfer patient was noted to have cerebral edema on computed tomography scan with concern for herniation and evaluation for an intracranial catheter by neurosurgeon patient was considered for transfer to [facility]. Physical exam on the day of discharge Heart tachycardic no murmurs appreciated Lungs good air entry clear to auscultation no rhonchi or wheezing appreciated Abdomen no organomegaly is noted Neurologic exam pupils are reactive there is corneal reflexes present moves all 4 extremities spontaneously however not to any commands. A cough or gag reflux is appreciated. Deep tendon reflexes are equal Current state patient will be sedated will be continued on the ventilator with settings on assist control respiratory rate of 16 tidal volume of 450 FiO2 of 30 % and PEEP of 5 Discharge diagnosis #1 acute encephalopathy likely multifactorial as secondary to anoxic brain injury and toxic encephalopathy as well #2 acute hypoxic respiratory failure #3 non-anion gap metabolic acidosis #4 history of IV drug use #5 bacteremia with micrococcus para graft #6 anemia of unknown etiology #7 sinus tachycardia She'll be transferred to [facility] for evaluation by neurosurgery. Patient's prognosis is extremely poor status discussed with the family as well. h Plan - Discharge Summary Discharge Medication List Gabapentin 600 mg PO BID 09/29/16 [History] Follow up Appointment(s)/Referral(s): None,Stated [Primary Care Provider] - 1-2 days
[2016-10-04 10:52] VITALS: BP 121/64; PULSE 75; RESP 15
--- NOTE | 2016-10-04 11:26 | P.PN ---
Subjective Principal diagnosis: Acute respiratory failure secondary to acute drug intoxication. 31-year-old female patient was brought into the emergency department after being found unresponsive suspecting a drug overdose. This patient is a long- term heroin abuser. At one point she was clean for a total of 9 months and she was using some subaxone. Apparently, she is back and doing drugs along with her . Yesterday, she was last seen doing drugs and her mother's in-laws house accompanied by her . The patient and her weren't and bedroom in the same house a different level when the [id number]-adj went to check on them and they patient was found to be completely unresponsive. The himself was under the influence of the drug. The exact downtime is not known and it is estimated to be more than 30 minutes at least. The father-in- law on another brother from the same mother started CPR on the patient. EMS was called to the scene. The patient was given a total of 8 mg of Narcan with some response however they overall response was suboptimal. In the emergency department, the patient was not following any commands no she was responding to deep painful stimuli. At that point the patient was intubated and started on mechanical ventilation. At that she came into the intensive care unit the patient started doing some activity which was essentially twitching and this was perceived to be some agitation by the nursing staff and she was placed on Diprivan overnight. This morning, during my laborer prestressed concrete rounds, to this patient off Diprivan and immediately it was noted that the patient was having rapid jerks somewhat myoclonic and the twitching was on her face both upper extremities and lower extremities. This was typical of seizure, probably tonic- clonic with some myoclonic features and based on that she was given a total of 100 mg of Diprivan bolus and started back on Diprivan drip and started on IV Keppra 1 g twice a day. EEG was ordered on a stat basis. The patient was on a mechanical ventilator on assist control mode and the chest x-ray from this morning showed no acute abnormalities. CAT scan of the brain that was done in the emergency department was also negative. Note that her urine drug screen was negative and after an extensive search and interrogation of the family will follow the patient has used Flakka , which is a [place] planned that had been melted and shots into her vein. This is an alpha -PVP drug that can cause agitation, delirium, paranoia, aggression, and has also been linked to , malignant hyperthermia, acute myocardial infarction. Clinically, the patient remains completely unresponsive. In fact she is on Diprivan for now and the jerking activity has subsided. She is hemodynamically stable. She is afebrile. Pupils are quite dilated at 6-7 mm in size. Reflexes are within normal in all 4 extremities laterally. On 09/30/2016 the patient is being seen in follow-up. As mentioned yesterday, the patient is a drug overdose case and the patient has signs of severe hypoxic encephalopathy. She was having seizure activity yesterday and based on that I put her on Diprivan and start on Keppra. Follow-up EEG was done and it showed evidence of severe widespread diffuse disturbance in the cerebral function. There was no evidence of any focal lateralizing or epileptiform activities. The patient as such was kept on the Diprivan and Keppra overnight and this morning she was taken off the Diprivan and she was given a holiday. The patient remained completely unresponsive. No junk activity was noted. The patient is unresponsive to any deep painful stimuli. She remains deeply comatose. She is still on IV Keppra for now 1 g every 12 hours. Neurology is on the case and strongly suspecting severe hypoxic/anoxic encephalopathy. Meanwhile, we are considering the rest of the supportive care. The patient remains on a mechanical ventilator. Chest x-ray today is clear. Blood gases were noted. The patient is oxygenating well. The patient will be started on tube feeds today. The patient did have a spike of temperature and she'll be cultured including sputum and blood and urine and she was started on empiric antibiotic coverage with IV Zosyn. On 10/01/2016 the patient is being seen in follow-up. As mentioned, yesterday morning the patient was taken off sedation. The prevent was discontinued. She did not have any seizure activity noted. On the. Neurologic examination the patient was noted to be still unresponsive. This morning, she had some minimal response to deep painful stimuli. She is occasionally breathing above the mechanical ventilator. She has a good cough reflex. Pupils are round 4 mm in size and there reactive to light. There is no nystagmus. No Babinski. No clonus. DTRs are diminished and +1 in upper and lower extremities. No abnormal jerky body movements. The patient remains on Keppra. Fever has been treated and the patient is currently afebrile. IV Rocephin was started as an empiric antibiotic coverage. The patient is on a mechanical ventilator and the vent setting currently is an assist-control of 16, tidal volume 400, FiO2 of 30 % and a PEEP of 5. Chest x-rayDone today is clear and the patient is currently on IV Rocephin as a empiric antibiotic coverage. On 10/02/2016 the patient is being seen in follow-up. The patient is still off any form of sedation. Unfortunately the neurologic recovery has been minimal. The patient remains comatose. She does withdraw to deep painful stimuli. She does not open her eyes spontaneously. She does not reveal any seizure activity. At times she gets tachycardic and this septal spontaneously. She remains on a mechanical ventilator. No fever or chills. No other significant events overnight. EEG had shown diffuse slowing with a background of 4 Hz activity and there is no evidence of any seizure activity noted. Prognosis remains very guarded. The patient is still on Keppra and the antiepileptic medication levels are being managed by neurology. 10/03/2016, patient remains on mechanical ventilation, unfortunately she has no neurologic recovery so far whatsoever. She remains comatose, she withdraws to deep painful stimuli, does not move her eyes spontaneously, remains intermittently tachycardic remains on mechanical ventilation, and I had a long discussion with the at bedside regarding her overall picture. However he has to discuss with the neurologist her overall neurological picture. Labs were reviewed, ABG showed a pO2 of 132 pCO2 of 3 to pH of 7.44 CBC is normal. Hemoglobin is 10.1 electrolytes and renal profile are normal. On 10/04/2016, patient remains on mechanical ventilation, and her neurological status is basically about the same. Repeat CT of the brain last night showed evidence of worsening cerebral edema, hence the patient was placed on Decadron, and the neurologist recommended referral and transferring the patient to [facility]. Patient will likely need to have an intracranial pressure monitoring which cannot be done in this institution. Arrangements will be made by the admitting physician to transfer the patient to have a [facility]. Patient remains on the same vent settings. Her chest x-ray today is relatively unremarkable, minimal left basilar atelectasis is noted. Labs showed a normal CBC. ABG showed a pO2 of 98 pCO2 of 37 pH of 7.41 basic metabolic profile is relatively normal. Objective - Vital Signs Vital signs: Vital Signs Temp 99.6 F 10/04/16 04:00 Pulse 75 10/04/16 10:30 Resp 15 10/04/16 10:30 BP 121/64 10/04/16 10:45 Pulse Ox 100 10/04/16 10:30 Intake & Output 10/03/16 10/04/16 10/04/16 18:59 06:59 18:59 Intake Total 5064.342 7109.228 290 Output Total 1105 768 215 Balance 377.548 966.228 75 Weight 54.4 kg 57.9 kg Intake: IV 600 600 200 normal saline 600 600 200 Intake, IV Titration 207.548 339.228 Amount Magnesium Sulfate-D5w Pmx 100 1 gm In Dextrose/Water 1 100ml.bag @ 100 mls/hr IVPB Q1H [facility] Rx#: [id number] Propofol 500 mg In Empty 57.548 89.228 Bag 1 bag @ Titrate IV . Q0M [facility] Rx#:[id number] Vancomycin 1,250 mg In 250 Sodium Chloride 0.9% 250 ml @ 125 mls/hr IVPB Q8HR [facility] Rx#:[id number] cefTRIAXone 1,000 mg In 50 Sodium Chloride 0.9% 50 ml @ 100 mls/hr IVPB Q24HR [facility] Rx#:[id number] Tube Feeding 675 675 90 Other 120 Output: Urine 1105 768 215 Other: Voiding Method Indwelling Catheter Indwelling Catheter Indwelling Catheter - Exam Patient is calm and comfortable and intubated on mechanical ventilator.Head exam was generally normal. There was no scleral icterus or corneal arcus. Mucous membranes were moist. Neck was supple and without jugular venous distension, thyromegaly, or carotid bruits. Carotids were easily palpable bilaterally. There was no adenopathy. Orogastric and orotracheal tube are both in place.Cardiac exam revealed the PMI to be normally situated and sized. The rhythm was regular and no extrasystoles were noted during several minutes of auscultation. The first and second heart sounds were normal and physiologic splitting of the second heart sound was noted. There were no murmurs, rubs, clicks, or gallops.Lungs were clear to auscultation and percussion, and with normal diaphragmatic excursion. No wheezes or rales were noted. Abdominal exam revealed normal bowel sounds. The abdomen was soft, non-tender, and without masses, organomegaly, or appreciable enlargement of the abdominal aorta.Examination of the extremities revealed easily palpable radial, femoral and pedal pulses. There was no cyanosis, clubbing or edema. Neurologically, the patient has minimal sluggish response to deep painful stimuli that was applied to her chest and lower extremities bilaterally. Reflexes are +1, no rigidity, no Babinski, no clonus, no facial asymmetry, she has a good cough and gag reflex and a gag reflex, pupils around 4 mm in size and they are reactive to light, no nystagmus, she is at times breathing above the mechanical ventilator. As such, the patient remains deeply comatose. - Labs CBC & Chem 7: 10/04/16 04:19 10/04/16 04:15 Labs: Abnormal Lab Results - Last 24 Hours (Table) 10/04/16 10/04/16 10/04/16 Range/Units 00:21 04:15 04:19 RBC 3.45 L (3.80-5.40) m/uL Hgb 10.5 L (11.4-16.0) gm/dL Hct 31.4 L (34.0-46.0) % ABG O2 Saturation (94-97) % Chloride 109 H (98-107) mmol/L Carbon Dioxide 20 L (22-30) mmol/L Creatinine 0.40 L (0.52-1.04) mg/dL Glucose 104 H (74-99) mg/dL POC Glucose (mg/dL) 110 H (75-99) mg/dL AST 73 H (14-36) U/L ALT 105 H (9-52) U/L Albumin 3.2 L (3.5-5.0) g/dL 10/04/16 10/04/16 Range/Units 06:06 07:22 RBC (3.80-5.40) m/uL Hgb (11.4-16.0) gm/dL Hct (34.0-46.0) % ABG O2 Saturation 97.7 H (94-97) % Chloride (98-107) mmol/L Carbon Dioxide (22-30) mmol/L Creatinine (0.52-1.04) mg/dL Glucose (74-99) mg/dL POC Glucose (mg/dL) 123 H (75-99) mg/dL AST (14-36) U/L ALT (9-52) U/L Albumin (3.5-5.0) g/dL Microbiology - Last 24 Hours (Table) 09/30/16 04:36 Blood Culture - Preliminary Blood No Growth after 96 hours 09/30/16 04:51 Blood Culture Gram Stain - Final Blood Blood Culture - Final Micrococcus species Assessment and Plan Plan: 1 acute drug intoxication. The patient has injected herself with Flekka, [place] plant, and this is known to be a an alpha- PVP, a synthetic stimulant of the cathinon-class, a drug is associated with suicides and drug overdoses. 2 hypoxic encephalopathy secondary to drug overdose. The patient is currently Off sedation and she is deeply comatose. Neurology is on the case and will do agree. Neurologic examinations. EEG showed diffuse slowing without evidence of any seizure activity. The patient remains on Keppra. Repeat CAT scan of the brain showed worsening cerebral edema, and the neurologist recommended Decadron and possibly referring the patient to [facility].. On 10/01/2016, the patient remains deeply comatose. No obvious seizure activity noted. Her latest EEG has shown diffuse slowing and the patient remains on Keppra. The patient has signs of severe hypoxic/anoxic encephalopathy following her acute drug intoxication and cardiopulmonary arrest. A follow-up EEG will be done today. We'll monitor neurological outcome. Intensive care unit. The patient me will be kept intubated and mechanical ventilator. The rest of the supportive care will be also continued. On 10/02/2016, the patient remains comatose without much of an improvement over the past 24 hours. The EEG had shown diffuse slowing without any improvement compared to the previous EKG findings. Prognosis remains extremely guarded. On 10/03/2016, no significant improvement noted, and the patient is the same as noted above. On 10/04/2016, no improvement is noted whatsoever, CT of the brain is showing worsening cerebral edema, and plans are being made to transfer the patient to [facility]. Patient will likely need to have intracranial pressure monitoring. 3 generalized seizures, currently inactive The EEG performed yesterday while the patient on Diprivan showed no seizure activity and there was diffuse slowing. A follow-up EEG needs to be done later stage. Meanwhile the patient was taken off Diprivan and she is currently on IV Keppra. 4 long history of IV drug use, involving heroin 5 leukocytosis 6 non-anion gap metabolic acidosis 7 negative urine drug screen 8 new-onset fever, rule out infection, rule out neurogenic fever. Recommendation: Continue present supportive care measures, continue Decadron, continue ventilatory support, nutritional support, GI and DVT prophylaxis, prognosis is definitely poor and obviously the patient has severe anoxic brain injury. Based on the neurology staff on the case, patient will be transferred hopefully today to [facility]. Discussed her condition with the at bedside. me with Patient: Greater than 30 Time with Patient: Greater than 30
[2016-10-24 12:37] LABS: Mis test requested (Blood) Novel Psych Substnce
== END 2016-10-04 11:33 | disposition short-term general hospital (02) | DRG 917 ==
LOC: EC 00:43 → 6ICU 03:15
PROVIDERS: ADMIT Hospitalist; ATTEND Hospitalist
PROC: 0BH17EZ Insertion of Endotracheal Airway into Trachea, Via Natural or Artificial Opening (ICD-10-PCS; principal; 2016-09-29)
PROC: 0DH67UZ Insertion of Feeding Device into Stomach, Via Natural or Artificial Opening (ICD-10-PCS; 2016-09-29)
PROC: 5A1955Z Respiratory Ventilation, Greater than 96 Consecutive Hours (ICD-10-PCS; 2016-09-29)
PROC: 0T9B70Z Drainage of Bladder with Drainage Device, Via Natural or Artificial Opening (ICD-10-PCS; 2016-09-29)
PROC: 3E0G76Z Introduction of Nutritional Substance into Upper GI, Via Natural or Artificial Opening (ICD-10-PCS; 2016-09-30)
DX: T65.891A Toxic effect of other specified substances, accidental (unintentional), initial encounter (principal); G93.6 Cerebral edema; I46.9 Cardiac arrest, cause unspecified; J96.01 Acute respiratory failure with hypoxia; R40.20 Unspecified coma; G92 Toxic encephalopathy; G93.1 Anoxic brain damage, not elsewhere classified; R78.81 Bacteremia; E87.4 Mixed disorder of acid-base balance; J98.11 Atelectasis; E83.39 Other disorders of phosphorus metabolism; T40.1X1A Poisoning by heroin, accidental (unintentional), initial encounter; F19.10 Other psychoactive substance abuse, uncomplicated; D69.6 Thrombocytopenia, unspecified; D64.9 Anemia, unspecified; D72.829 Elevated white blood cell count, unspecified; G40.409 Other generalized epilepsy and epileptic syndromes, not intractable, without status epilepticus; B96.89 Other specified bacterial agents as the cause of diseases classified elsewhere; F41.9 Anxiety disorder, unspecified; R00.0 Tachycardia, unspecified; J01.30 Acute sphenoidal sinusitis, unspecified; R11.10 Vomiting, unspecified; R73.09 Other abnormal glucose; R94.01 Abnormal electroencephalogram [EEG]; R50.9 Fever, unspecified; R74.8 Abnormal levels of other serum enzymes; F17.200 Nicotine dependence, unspecified, uncomplicated; Z88.0 Allergy status to penicillin; Z79.899 Other long term (current) drug therapy; Y92.013 Bedroom of single-family (private) house as the place of occurrence of the external cause
CPT/HCPCS: 31500; 36415; 36600; 70450; 71010; 80053; 80074; 80177; 80202; 80306; 80307; 80320; 81001; 81025; 82550; 82553; 82805; 83520; 83735; 84100; 84484; 85025; 85610; 85730; 86850; 86900; 86901; 87040; 87070; 87205; 94002; 94003; 95816; 95819; 96365; 96366; 96375; 99291